=== PATIENT | female | born 1990 | race Caucasian/White ===

== ENCOUNTER 2016-10-29 04:00 | Day surgery (SDC) | payer OTHER ==
[2016-10-29] MEDS ORDERED: Ondansetron 4 MG/2 ML SDV IVPUSH ONE (04:15)
[2016-10-29] MEDS ORDERED: Sodium Chloride 0.9% 1,000 ML IV SCH (04:15)
[2016-10-29] MEDS ORDERED: Sodium Chloride 0.9% 10 ML Syringe FLUSH PRN (04:15)
[2016-10-29] MEDS ORDERED: HYDROmorphone 1 MG/ML Syringe IVPUSH ONE (04:17)
[2016-10-29] MEDS ORDERED: Ketorolac 30 MG/ML SDV IVPUSH ONE (04:17)
--- NOTE | 2016-10-29 04:27 | EDM.PDOC ---
ED HPI GENERAL MEDICAL PROBLEM - General Chief Complaint: Abdominal Pain Stated Complaint: BAD BACK PAIN Time Seen by Provider: 10/29/16 04:11 Source of Information: Reports: Patient History Limitations: Reports: No Limitations - History of Present Illness INITIAL COMMENTS - FREE TEXT/NARRATIVE: The patient presents with right flank pain. She says this has been going on for the past 4 nights. She says it happens late at night and goes away by 1 to 2 in the morning. She has nausea with it. She has no fever, chills, cough, chest pain or shortness of breath. She has no dysuria or hematuria. She has no history of renal stones. She does not have her appendix. Food does not affect the pain. She says she has no pain during the day. Onset: Gradual Duration: Day(s): (4) Location: Reports: Other (Right flank) Quality: Reports: Sharp Severity: Severe Improves with: Reports: None Worsens with: Reports: None Associated Symptoms: Reports: Nausea/Vomiting. Denies: Chest Pain, Fever/Chills , Shortness of Breath Right Upper Abdomen Pain Score (Numeric/FACES): 8 - Related Data Allergies Allergy/AdvReac Type Severity Reaction Status Date / Time methylprednisolone Allergy Itching Verified 10/29/16 04:10 Past Medical History Musculoskeletal History: Reports: Back Pain, Chronic Neurological History: Reports: Migraines - Infectious Disease History Infectious Disease History: Reports: Chicken Pox - Past Surgical History GI Surgical History: Reports: Appendectomy Social & Family History - Tobacco Use Smoking Status *Q: Never Smoker Second Hand Smoke Exposure: Yes - Caffeine Use Caffeine Use: Reports: None - Recreational Drug Use Recreational Drug Use: No ED ROS GENERAL - Review of Systems Review Of Systems: See Below Constitutional: Reports: No Symptoms HEENT: Reports: No Symptoms Respiratory: Reports: No Symptoms Cardiovascular: Reports: No Symptoms Endocrine: Reports: No Symptoms GI/Abdominal: Reports: Abdominal Pain, Nausea. Denies: Vomiting : Reports: Flank Pain (Right) Musculoskeletal: Reports: No Symptoms ED EXAM, GI/ABD - Physical Exam Exam: See Below Exam Limited By: No Limitations General Appearance: Alert, No Apparent Distress Ears: Normal External Exam Nose: Normal Inspection Head: Atraumatic, Normocephalic Neck: Normal Inspection Respiratory/Chest: No Respiratory Distress, Lungs Clear, Normal Breath Sounds Cardiovascular: Regular Rate, Rhythm, No Edema, No Murmur GI/Abdominal: Soft, Non-Tender, No Organomegaly, No Mass Back Exam: CVA Tenderness (R) Extremities: Normal Inspection Course - Vital Signs Last Recorded V/S: Last Vital Signs Temp 97.2 F 10/29/16 04:05 Pulse 97 10/29/16 04:05 Resp 16 10/29/16 04:05 BP 147/101 H 10/29/16 04:05 Pulse Ox 98 10/29/16 04:05 - Orders/Labs/Meds Orders: Active Orders 24 hr Category Date Time Status Peripheral IV Care [RC] . DIRECTED Care 10/29/16 04:16 Active Abdomen Pelvis wo Cont [CT] Stat Exams 10/29/16 04:15 Taken Sodium Chloride 0.9% [Normal Saline] 1,000 ml Med 10/29/16 04:15 Active IV ASDIRECTED Sodium Chloride 0.9% [Saline Flush] Med 10/29/16 04:15 Active 10 ml FLUSH ASDIRECTED PRN ED Antiemetic Medication Reflex [OM.PC] Stat Oth 10/29/16 04:15 Ordered Peripheral IV Insertion Adult [OM.PC] Stat Oth 10/29/16 04:15 Ordered Medication Orders Sodium Chloride (Normal Saline) 1,000 mls @ 125 mls/hr IV ASDIRECTED MARIANO Last Admin: 10/29/16 04:27 Dose: 125 mls/hr Sodium Chloride (Saline Flush) 10 ml FLUSH ASDIRECTED PRN PRN Reason: Keep Vein Open Last Admin: 10/29/16 04:25 Dose: 10 ml Labs: Laboratory Tests 10/29/16 10/29/16 10/29/16 Range/Units 04:20 04:21 04:21 WBC 10.76 H (3.98-10.04) K/mm3 RBC 4.71 (3.98-5.22) M/mm3 Hgb 13.7 (11.2-15.7) gm/L Hct 41.7 (34.1-44.9) % MCV 88.5 (79.4-94.8) fl MCH 29.1 (25.6-32.2) pg MCHC 32.9 (32.2-35.5) g/dl RDW Std Deviation 42.6 (36.4-46.3) fL Plt Count 353 (182-369) K/mm3 MPV 10.6 (9.4-12.3) fl Neut % (Auto) 57.5 (34.0-71.1) % Lymph % (Auto) 30.1 (19.3-51.7) % Saline % (Auto) 9.9 (4.7-12.5) % Eos % (Auto) 2.1 (0.7-5.8) Baso % (Auto) 0.3 (0.1-1.2) % Neut # (Auto) 6.19 H (1.56-6.13) K/mm3 Lymph # (Auto) 3.24 (1.18-3.74) K/mm3 Saline # (Auto) 1.06 H (0.24-0.36) K/mm3 Eos # (Auto) 0.23 (0.04-0.36) K/mm3 Baso # (Auto) 0.03 (0.01-0.08) K/mm3 Sodium 144 (136-145) mEq/L Potassium 3.9 (3.5-5.1) mEq/L Chloride 106 (98-107) mEq/L Carbon Dioxide 27 (21-32) mEq/L Anion Gap 14.9 (5-15) BUN 13 (7-18) mg/dL Creatinine 1.0 (0.55-1.02) mg/dL Est Cr Clr Drug Dosing 72.32 mL/min Estimated GFR (MDRD) > 60 (>60) mL/min BUN/Creatinine Ratio 13.0 L (14-18) Glucose 116 H (74-106) mg/dL Calcium 9.1 (8.5-10.1) mg/dL Total Bilirubin 0.8 (0.2-1.0) mg/dL AST 14 L (15-37) U/L ALT 24 (14-59) U/L Alkaline Phosphatase 87 (46-116) U/L Total Protein 8.0 (6.4-8.2) g/dl Albumin 3.7 (3.4-5.0) g/dl Globulin 4.3 gm/dL Albumin/Globulin Ratio 0.9 L (1-2) Lipase 125 (73-393) U/L HCG, Qual (NEGATIVE) Urine Color Yellow (Yellow) Urine Appearance Clear (Clear) Urine pH 6.0 (5.0-8.0) Ur Specific [place] > or = 1.030 (1.005-1.030) Urine Protein Negative (Negative) Urine Glucose (UA) Negative (Negative) Urine Ketones Negative (Negative) Urine Occult Blood Trace-lysed H (Negative) Urine Nitrite Negative (Negative) Urine Bilirubin Negative (Negative) Urine Urobilinogen 0.2 (0.2-1.0) Ur Leukocyte Esterase Trace H (Negative) Urine RBC 0-5 (0-5) /hpf Urine WBC 10-20 H (0-5) /hpf Ur Epithelial Cells Not Reportable Ur Squamous Epith Cells 20-30 H (0-5) /hpf Urine Bacteria Rare (FEW) /hpf Urine Mucus Not seen (FEW) /hpf 10/29/16 Range/Units 04:21 WBC (3.98-10.04) K/mm3 RBC (3.98-5.22) M/mm3 Hgb (11.2-15.7) gm/L Hct (34.1-44.9) % MCV (79.4-94.8) fl MCH (25.6-32.2) pg MCHC (32.2-35.5) g/dl RDW Std Deviation (36.4-46.3) fL Plt Count (182-369) K/mm3 MPV (9.4-12.3) fl Neut % (Auto) (34.0-71.1) % Lymph % (Auto) (19.3-51.7) % Saline % (Auto) (4.7-12.5) % Eos % (Auto) (0.7-5.8) Baso % (Auto) (0.1-1.2) % Neut # (Auto) (1.56-6.13) K/mm3 Lymph # (Auto) (1.18-3.74) K/mm3 Saline # (Auto) (0.24-0.36) K/mm3 Eos # (Auto) (0.04-0.36) K/mm3 Baso # (Auto) (0.01-0.08) K/mm3 Sodium (136-145) mEq/L Potassium (3.5-5.1) mEq/L Chloride (98-107) mEq/L Carbon Dioxide (21-32) mEq/L Anion Gap (5-15) BUN (7-18) mg/dL Creatinine (0.55-1.02) mg/dL Est Cr Clr Drug Dosing mL/min Estimated GFR (MDRD) (>60) mL/min BUN/Creatinine Ratio (14-18) Glucose (74-106) mg/dL Calcium (8.5-10.1) mg/dL Total Bilirubin (0.2-1.0) mg/dL AST (15-37) U/L ALT (14-59) U/L Alkaline Phosphatase (46-116) U/L Total Protein (6.4-8.2) g/dl Albumin (3.4-5.0) g/dl Globulin gm/dL Albumin/Globulin Ratio (1-2) Lipase (73-393) U/L HCG, Qual Negative (NEGATIVE) Urine Color (Yellow) Urine Appearance (Clear) Urine pH (5.0-8.0) Ur Specific [place] (1.005-1.030) Urine Protein (Negative) Urine Glucose (UA) (Negative) Urine Ketones (Negative) Urine Occult Blood (Negative) Urine Nitrite (Negative) Urine Bilirubin (Negative) Urine Urobilinogen (0.2-1.0) Ur Leukocyte Esterase (Negative) Urine RBC (0-5) /hpf Urine WBC (0-5) /hpf Ur Epithelial Cells Ur Squamous Epith Cells (0-5) /hpf Urine Bacteria (FEW) /hpf Urine Mucus (FEW) /hpf Meds: Medications Generic Name Dose Route Start Last Admin Trade Name Freq PRN Reason Stop Dose Admin Sodium Chloride 1,000 mls @ 125 mls/hr 10/29/16 04:15 10/29/16 04:27 Normal Saline IV 125 mls/hr ASDIRECTED MARIANO Administration Sodium Chloride 10 ml 10/29/16 04:15 10/29/16 04:25 Saline Flush FLUSH 10 ml ASDIRECTED PRN Administration Keep Vein Open Discontinued Medications Generic Name Dose Route Start Last Admin Trade Name Freq PRN Reason Stop Dose Admin Hydromorphone HCl 1 mg 10/29/16 04:17 10/29/16 04:30 Dilaudid IVPUSH 10/29/16 04:18 1 mg ONETIME ONE Administration Ketorolac Tromethamine 30 mg 10/29/16 04:17 10/29/16 04:33 Toradol IVPUSH 10/29/16 04:18 30 mg ONETIME ONE Administration Ondansetron HCl 4 mg 10/29/16 04:15 10/29/16 04:28 Zofran IVPUSH 10/29/16 04:16 4 mg ONETIME ONE Administration - Re-Assessments/Exams Free Text/Narrative Re-Assessment/Exam: 10/29/16 04:33 I ordered an IV NS at 125mL/hr, zofran 4mg IV, dilaudid 1mg IV, toradol 30mg IV , labs, UA and CT of her abdomen and pelvis to look for a kidney stone. 10/29/16 06:33 Her WBC was elevated at 10.76. Her HCG was negative. Her CMP looks good. Her UA shows no UTI. It appears to be a contaminated sample. There is epithelial cells in it. The CT shows bilateral nephrochalcinosis and cholelithiasis with a large gallstone potentially impacted at the neck of the gallbladder. Her pain is coming back. I am thinking she will need her gallbladder out. I called Dr Lopez and he wanted an US and he will come see her around 8 and take her to surgery later. Departure - Departure Time of Disposition: 06:45 Disposition: Refer to Observation Condition: fair Clinical Impression: Biliary colic Cholelithiasis Qualifiers: Cholelithiasis location: gallbladder Cholecystitis presence: without cholecystitis Biliary obstruction: without biliary obstruction Qualified Code(s) : K80.20 - Calculus of gallbladder without cholecystitis without obstruction - Discharge Information Forms: ED Department Discharge - My Orders Last 24 Hours: My Active Orders 10/29/16 04:15 Abdomen Pelvis wo Cont [CT] Stat Sodium Chloride 0.9% [Normal Saline] 1,000 ml IV ASDIRECTED Sodium Chloride 0.9% [Saline Flush] 10 ml FLUSH ASDIRECTED PRN ED Antiemetic Medication Reflex [OM.PC] Stat Peripheral IV Insertion Adult [OM.PC] Stat 10/29/16 04:16 Peripheral IV Care [RC] . DIRECTED - Assessment/Plan Last 24 Hours: My Active Orders 10/29/16 04:15 Abdomen Pelvis wo Cont [CT] Stat Sodium Chloride 0.9% [Normal Saline] 1,000 ml IV ASDIRECTED Sodium Chloride 0.9% [Saline Flush] 10 ml FLUSH ASDIRECTED PRN ED Antiemetic Medication Reflex [OM.PC] Stat Peripheral IV Insertion Adult [OM.PC] Stat 10/29/16 04:16 Peripheral IV Care [RC] . DIRECTED
[2016-10-29] MEDS ORDERED: HYDROmorphone 0.5 MG/0.5 ML Syringe IVPUSH ONE (06:49)
--- NOTE | 2016-10-29 08:01 | US ---
Limited abdominal ultrasound: Multiple real-time images were obtained of the upper right abdomen. Pancreas appears within normal limits. Liver shows no focal abnormality. Large gallstone is noted within the gallbladder neck measuring 1.7 cm. Smaller gallstones seen on prior CT exam are hidden by the larger gallstone on this exam and not seen. No biliary duct dilatation is seen. No gallbladder wall thickening is identified. Right kidney shows no hydronephrosis. No discrete shadowing calcification is seen within the right kidney. Right kidney measures 9.9 cm in length. Impression: 1. 1.7 cm gallstone within the gallbladder neck. Smaller gallstones seen on prior CT are not seen and likely hidden by the larger gallstone on this exam. 2. No additional abnormality is seen on right upper quadrant abdominal ultrasound. Diagnostic code #3
--- NOTE | 2016-10-29 08:10 | PCM.PREANE ---
Preanesthetic Assessment - Procedure Proposed Procedure: Laparoscopic Cholecystectomy - Anesthesia/Transfusion/Family Hx Anesthesia History: Prior Anesthesia Without Reaction Family History of Anesthesia Reaction: No Transfusion History: No Prior Transfusion(s) Type of Transfusion Reactions: Reports: Unknown Intubation History: Unknown - Review of Systems General: No Symptoms Pulmonary: No Symptoms Cardiovascular: No Symptoms Gastrointestinal: Abdominal pain, Diarrhea, Vomiting, Other (occasional GERD) Neurological: Headache (frequent, occasional migraine) Other: Reports: None - Physical Assessment NPO Status Date: 10/29/16 NPO Status Time: 21:00 O2 Sat by Pulse Oximetry: 98 Respiratory Rate: 16 Vital Signs: Last Vital Signs Temp 36.2 C 10/29/16 04:05 Pulse 97 10/29/16 04:05 Resp 16 10/29/16 04:05 BP 147/101 H 10/29/16 04:05 Pulse Ox 98 10/29/16 04:05 Height: 1.63 m Weight: 106.594 kg ASA Class: 2E Mental Status: Alert & Oriented x3 Airway Class: Mallampati = 1 Dentition: Reports: Broken Tooth/Teeth (front top right tooth chipped medially) Thyro-Mental Finger Breadths: 3 Mouth Opening Finger Breadths: 3 ROM/Head Extension: Full Lungs: Clear to auscultation, Normal respiratory effort Cardiovascular: Regular Rate, Regular Rhythm - Lab Values: Laboratory Last Values WBC 10.76 K/mm3 (3.98-10.04) H 10/29/16 04:21 RBC 4.71 M/mm3 (3.98-5.22) 10/29/16 04:21 Hgb 13.7 gm/L (11.2-15.7) 10/29/16 04:21 Hct 41.7 % (34.1-44.9) 10/29/16 04:21 MCV 88.5 fl (79.4-94.8) 10/29/16 04:21 MCH 29.1 pg (25.6-32.2) 10/29/16 04:21 MCHC 32.9 g/dl (32.2-35.5) 10/29/16 04:21 RDW Std Deviation 42.6 fL (36.4-46.3) 10/29/16 04:21 Plt Count 353 K/mm3 (182-369) 10/29/16 04:21 MPV 10.6 fl (9.4-12.3) 10/29/16 04:21 Neut % (Auto) 57.5 % (34.0-71.1) 10/29/16 04:21 Lymph % (Auto) 30.1 % (19.3-51.7) 10/29/16 04:21 [place] % (Auto) 9.9 % (4.7-12.5) 10/29/16 04:21 Eos % (Auto) 2.1 (0.7-5.8) 10/29/16 04:21 Baso % (Auto) 0.3 % (0.1-1.2) 10/29/16 04:21 Neut # (Auto) 6.19 K/mm3 (1.56-6.13) H 10/29/16 04:21 Lymph # (Auto) 3.24 K/mm3 (1.18-3.74) 10/29/16 04:21 [place] # (Auto) 1.06 K/mm3 (0.24-0.36) H 10/29/16 04:21 Eos # (Auto) 0.23 K/mm3 (0.04-0.36) 10/29/16 04:21 Baso # (Auto) 0.03 K/mm3 (0.01-0.08) 10/29/16 04:21 Sodium 144 mEq/L (136-145) 10/29/16 04:21 Potassium 3.9 mEq/L (3.5-5.1) 10/29/16 04:21 Chloride 106 mEq/L (98-107) 10/29/16 04:21 Carbon Dioxide 27 mEq/L (21-32) 10/29/16 04:21 Anion Gap 14.9 (5-15) 10/29/16 04:21 BUN 13 mg/dL (7-18) 10/29/16 04:21 Creatinine 1.0 mg/dL (0.55-1.02) 10/29/16 04:21 Est Cr Clr Drug Dosing 72.32 mL/min 10/29/16 04:21 Estimated GFR (MDRD) > 60 mL/min (>60) 10/29/16 04:21 BUN/Creatinine Ratio 13.0 (14-18) L 10/29/16 04:21 Glucose 116 mg/dL (74-106) H 10/29/16 04:21 Calcium 9.1 mg/dL (8.5-10.1) 10/29/16 04:21 Total Bilirubin 0.8 mg/dL (0.2-1.0) 10/29/16 04:21 AST 14 U/L (15-37) L 10/29/16 04:21 ALT 24 U/L (14-59) 10/29/16 04:21 Alkaline Phosphatase 87 U/L (46-116) 10/29/16 04:21 Total Protein 8.0 g/dl (6.4-8.2) 10/29/16 04:21 Albumin 3.7 g/dl (3.4-5.0) 10/29/16 04:21 Globulin 4.3 gm/dL 10/29/16 04:21 Albumin/Globulin Ratio 0.9 (1-2) L 10/29/16 04:21 Lipase 125 U/L (73-393) 10/29/16 04:21 HCG, Qual Negative (NEGATIVE) 10/29/16 04:21 Urine Color Yellow (Yellow) 10/29/16 04:20 Urine Appearance Clear (Clear) 10/29/16 04:20 Urine pH 6.0 (5.0-8.0) 10/29/16 04:20 Ur Specific [place] > or = 1.030 (1.005-1.030) 10/29/16 04:20 Urine Protein Negative (Negative) 10/29/16 04:20 Urine Glucose (UA) Negative (Negative) 10/29/16 04:20 Urine Ketones Negative (Negative) 10/29/16 04:20 Urine Occult Blood Trace-lysed (Negative) H 10/29/16 04:20 Urine Nitrite Negative (Negative) 10/29/16 04:20 Urine Bilirubin Negative (Negative) 10/29/16 04:20 Urine Urobilinogen 0.2 (0.2-1.0) 10/29/16 04:20 Ur Leukocyte Esterase Trace (Negative) H 10/29/16 04:20 Urine RBC 0-5 /hpf (0-5) 10/29/16 04:20 Urine WBC 10-20 /hpf (0-5) H 10/29/16 04:20 Ur Epithelial Cells Not Reportable 10/29/16 04:20 Ur Squamous Epith Cells 20-30 /hpf (0-5) H 10/29/16 04:20 Urine Bacteria Rare /hpf (FEW) 10/29/16 04:20 Urine Mucus Not seen /hpf (FEW) 10/29/16 04:20 - Allergies Allergies/Adverse Reactions: Allergies Allergy/AdvReac Type Severity Reaction Status Date / Time methylprednisolone Allergy Itching Verified 10/29/16 04:10 - Blood Blood Available: No Product(s) Available: None - Anesthesia Plan Pre-Op Medication Ordered: None - Acknowledgements Anesthesia Type Planned: General Anesthesia (pt ok with receiving decadron, states "she would rather itch than be vomiting") Pt an Appropriate Candidate for the Planned Anesthesia: Yes Alternatives and Risks of Anesthesia Discussed w Pt/Guardian: Yes Pt/Guardian Understands and Agrees with Anesthesia Plan: Yes PreAnesthesia Questionnaire Musculoskeletal History: Reports: Back Pain, Chronic Neurological History: Reports: Migraines - Infectious Disease History Infectious Disease History: Reports: Chicken Pox - Past Surgical History GI Surgical History: Reports: Appendectomy - SUBSTANCE USE Smoking Status *Q: Never Smoker Second Hand Smoke Exposure: Yes Recreational Drug Use History: No - CURRENT (IN HOUSE) MEDS Current Meds: Current Medications Sodium Chloride (Normal Saline) 1,000 mls @ 125 mls/hr IV ASDIRECTED MARIANO Last Admin: 10/29/16 04:27 Dose: 125 mls/hr Sodium Chloride (Saline Flush) 10 ml FLUSH ASDIRECTED PRN PRN Reason: Keep Vein Open Last Admin: 10/29/16 04:25 Dose: 10 ml Discontinued Medications Hydromorphone HCl (Dilaudid) 1 mg IVPUSH ONETIME ONE Stop: 10/29/16 04:18 Last Admin: 10/29/16 04:30 Dose: 1 mg Hydromorphone HCl (Dilaudid) 0.5 mg IVPUSH ONETIME ONE Stop: 10/29/16 06:50 Last Admin: 10/29/16 06:53 Dose: 0.5 mg Ketorolac Tromethamine (Toradol) 30 mg IVPUSH ONETIME ONE Stop: 10/29/16 04:18 Last Admin: 10/29/16 04:33 Dose: 30 mg Ondansetron HCl (Zofran) 4 mg IVPUSH ONETIME ONE Stop: 10/29/16 04:16 Last Admin: 10/29/16 04:28 Dose: 4 mg
[2016-10-29] MEDS ORDERED: Sodium Chloride 0.9% 50 ML SDV ONE ×2 (08:30→10:20)
[2016-10-29] MEDS ORDERED: Bupivacaine 0.5% 30 ML SDV ONE (08:31)
[2016-10-29] MEDS ORDERED: Iopamidol 612 MG/ML 50 ML SDV ONE (08:31)
[2016-10-29] MEDS ORDERED: Rocuronium 50 MG/5 ML Vial ONE (08:32)
[2016-10-29] MEDS ORDERED: Ondansetron 4 MG/2 ML SDV ONE (08:32)
[2016-10-29] MEDS ORDERED: Lidocaine 1% 4 ML ONE (08:32)
[2016-10-29] MEDS ORDERED: Propofol 200 MG/20 ML SDV ONE (08:32)
[2016-10-29] MEDS ORDERED: Midazolam 1 MG/ML 2 ML SDV ONE (08:33)
[2016-10-29] MEDS ORDERED: fentaNYL 250 MCG/5 ML SDV ONE (08:33)
[2016-10-29] MEDS ORDERED: Scopolamine 1.5 MG Transdermal Patch TRDERM ONE (08:36)
[2016-10-29] MEDS ORDERED: Dexamethasone 4 MG/ML 5 ML MDV ONE (08:39)
[2016-10-29] MEDS ORDERED: Ampicillin/Sulbactam Na 3 GM in Sodium Chloride 0.9% 100 ML IV ONE (08:45)
--- NOTE | 2016-10-29 09:37 | CT ---
CT abdomen and pelvis Technique: Multiple axial sections were obtained from above the kidneys inferiorly through the pubic symphysis. Intravenous and oral contrast was not utilized. Study has been performed as a ureteral stone protocol. Comparison: No previous abdominal imaging. Findings: Visualized lung bases show mild atelectasis. Noncontrast appearance of the liver and spleen are within normal limits. Calcified gallstones are seen within the gallbladder. Large gallstones seen within the gallbladder neck measuring approximately 1.7 cm. Smaller calcification is seen within the dependent portion of the gallbladder. Adrenal glands show no nodule. Pancreas is within normal limits. Aorta shows no aneurysmal dilatation. No retroperitoneal adenopathy or mesenteric abnormalities are seen. Surgical clips are noted next to the cecum presumably due to previous appendectomy. No pelvic mass or adenopathy is seen. No free fluid or inflammatory change is seen. Kidneys show no abnormal calcifications. No ureteral dilatation is seen. No ureteral calculus is seen. Bone window settings were reviewed which appear within normal limits for the patient's age. Impression: 1. Gallstones which appear calcified. 2. No renal calculi are seen. No ureteral dilatation or ureteral stone is seen. 3. No additional abnormality is identified on noncontrast CT study performed as a ureteral stone protocol. Diagnostic code #2 I agree with preliminary report issued by [facility] ([facility] preliminary report dictated on 10/29/16, 7:14 AM Central Time)
[2016-10-29] MEDS ORDERED: Labetalol 100 MG/20 ML MDV ONE (10:08)
--- NOTE | 2016-10-29 10:41 | HP ---
DATE OF ADMISSION: 10/29/2016 HISTORY OF PRESENT ILLNESS: This is a 26-year-old female who came into the emergency room last night with flank pain on both sides. She was worked up. CT scan showing normal kidneys, but gallstones, which was confirmed by ultrasound showing a stone about 1 cm, impacted in the neck. The patient states she has been having this pain since . Every evening she would have it along with severe pain radiating to both flanks, right greater than the left. Associated with nausea and vomiting and that would occur at night. Last night, it seemed to be much worse, and she came into the emergency room. She has settled down. The patient states that she is better now. FAMILY HISTORY: Her family history is that her mother has gallstones and needs surgery. PAST MEDICAL HISTORY: Medical problems are none. PAST SURGICAL HISTORY: Lap appendectomy. ALLERGIES: To methylprednisolone. SOCIAL HISTORY: No smoking and no drinking. REVIEW OF SYSTEMS: No chest pain, shortness of breath, cough, hoarseness, wheezing, fainting, weakness, numbness, or convulsions. PHYSICAL EXAMINATION: GENERAL: Reveals an alert and cooperative female. VITAL SIGNS: She has blood pressure of 147/101, respirations 16, pulse 97, temperature 97.2. EYES: Sclerae white. Extraocular muscle motion normal. ORAL CAVITY: Healthy mucous membrane with mouth and tongue. NECK: Supple. No nodes. No thyromegaly. Trachea midline. LUNGS: Clear. No rales, rhonchi, fremitus, or dullness. HEART: Tones regular rate. No S3, S4, jugular venous distention. ABDOMEN: Soft. No tenderness, guarding, or rebound. MUSCULOSKELETAL: No back tenderness. Upper and lower extremities, no angulation deformities. SKIN: Warm and dry. PSYCH: She is alert, cooperative, and oriented x3. NEUROLOGIC: Cranial nerves 3 through 12 intact. No sensorineural deficit. LABORATORY DATA: Hemoglobin 13.7, platelet count is normal, white count is 10,000.7. Sodium and electrolytes normal. Her bilirubin is normal at 0.8. Liver enzymes normal. Urinalysis is negative. ASSESSMENT: Impacted stone in the cystic duct with recurrent abdominal pain. PLAN: For laparoscopic cholecystectomy. I discussed this with the patient, the risks, and the complications. She understands and consents. We will schedule today. MMODAL /[id number]
[2016-10-29] MEDS ORDERED: Lactated Ringers 1,000 ML ONE (10:45)
--- NOTE | 2016-10-29 11:24 | PCM.OPNOTE ---
- General Post-Op/Procedure Note Date of Surgery/Procedure: 10/29/16 Operative Procedure(s): lap haseeb with IOC Pre Op Diagnosis: cholelithisasis / cholecystitis Post-Op Diagnosis: Same Anesthesia Technique: General ET tube Primary Surgeon: Kota Lopez EBL in mLs: 10 Complications: None Condition: Good
[2016-10-29] MEDS ORDERED: diphenhydrAMINE 50 MG/ML SDV IVPUSH PRN (11:26)
--- NOTE | 2016-10-29 11:29 | PCM.POSTAN ---
POST ANESTHESIA ASSESSMENT - MENTAL STATUS Mental Status: alert, oriented - VITAL SIGNS Pulse Rate: 85 SaO2: 91 Resp Rate: 21 Blood Pressure: 133/79 Temperature: 37.2 C - RESPIRATORY Respiratory Status: respiratory rate WNL, airway patent, O2 saturation stable - CARDIOVASCULAR CV Status: pulse rate WNL, blood pressure stable - GASTROINTESTINAL GI Status: no symptoms - PAIN Pain Score: 0 - POST OP HYDRATION Hydration Status: adequate & stable (no anesthesia complications noted)
[2016-10-29] MEDS: fentaNYL 100 MCG/2 ML SDV IVPUSH PRN ×3 (11:34→12:05)
--- NOTE | 2016-10-29 12:07 | CR ---
Operative cholangiogram: Multiple fluoroscopic spot views utilizing C-arm device was obtained during operative cholangiogram study. Opacification CHD and CBD are noted. Some intrahepatic opacification is also seen within the biliary tree. No filling defects are seen to indicate retained stone. Contrast noted within the duodenum. Impression: 1. No abnormality identified on operative cholangiogram exam. Diagnostic code #1
[2016-10-29] MEDS ORDERED: Acetaminophen/HYDROcodone 325-5 MG Tab PO ONE (13:50)
--- NOTE | 2016-10-29 13:51 | OR ---
DATE OF OPERATION: 10/29/2016 SURGEON: Kota Lopez MD PREOPERATIVE DIAGNOSIS: Cholelithiasis, cholecystitis. POSTOPERATIVE DIAGNOSIS: Cholelithiasis, cholecystitis. OPERATION PERFORMED: Laparoscopic cholecystectomy and intraoperative cholangiogram. FINDINGS: Inflamed gallbladder with a stone impacted in the cystic duct. Cholangiogram showed right and left hepatic duct with free flow of dye into the duodenum without any dilatation. ANESTHESIA: Procedure done under general anesthetic. ESTIMATED BLOOD LOSS: About 10 mL. DESCRIPTION OF PROCEDURE: The patient was taken to the operating room, placed in a supine position, connected to monitoring equipment, given a general anesthetic, intubated, antibiotics given, and SCDs were placed. The abdomen was prepped with DuraPrep and draped off in a sterile fashion. Incision was made just above the umbilicus. Using a 5-mm Optiport, abdominal cavity was entered. A 5-mm 0- degree camera was inserted and abdominal cavity scanned showing a distended gallbladder, right upper quadrant. A 10-mm trocar was placed in the epigastric port and a 5-mm trocar placed in right upper and right lateral ports. The patient was placed in reverse Trendelenburg with leftward tilt. The fundus of the gallbladder was retracted, and the adhesions were taken off the lower part of the gallbladder. Inflamed stone was identified and impacted in the cystic duct covered by the duodenum. Duodenum was carefully removed by blunt dissection and using electrocautery, dissection was carried down through the cystic duct-Arielel pouch junction, which was developed. After clearing the cystic duct and dissecting down to where it began to widen out, then cystic duct- Arielle pouch junction was secured with a clip. The cystic duct was opened and cholangiocatheter was then inserted and secured with a clip, and a cholangiogram was obtained using contrast diluted with equal parts of saline. This showed the above intraoperative cholangiogram. The cholangiocatheter was then removed. A clip was placed on the cystic duct and 0 PDS endo-loop was then placed over this to secure it. The gallbladder was then dissected from its attachments. The liver was placed in an Endobag and removed from the epigastric port by enlarging the epigastric port. With this accomplished, the gallbladder was then sent to pathology. The 10-mm trocar was then replaced and pneumoperitoneum established. The area was irrigated and excellent hemostasis secured. This completed the intraabdominal portion of the procedure, the pneumoperitoneum, and ports were removed. 0 Vicryl suture was used to close the fascia in the epigastric port, and the skin of each port closed with subdermal 4-0 Dexon suture in interrupted fashion. Steri-Strips and sterile dressing placed, and 0.5% Marcaine infiltrated in the skin. The patient tolerated the procedure and was sent to recovery room in a stable condition. CODI /[id number]
[2016-10-29 14:43] VITALS: BP 112/51
== END 2016-10-29 14:20 | disposition home or self-care (01) ==
LOC: JD.ED 04:00 → JD.SDS 08:22
PROVIDERS: ATTEND Surgery
PROC: 0FT44ZZ Resection of Gallbladder, Percutaneous Endoscopic Approach (ICD-10-PCS; principal; 2016-10-29)
PROC: BF12YZZ Fluoroscopy of Gallbladder using Other Contrast (ICD-10-PCS; 2016-10-29)
DX: K80.10 Calculus of gallbladder with chronic cholecystitis without obstruction (principal); Z88.8 Allergy status to other drugs, medicaments and biological substances; Z90.49 Acquired absence of other specified parts of digestive tract
CPT/HCPCS: 36415; 47563; 74176; 74300; 76705; 80053; 81001; 83690; 84703; 85025; 88304; 96361; 96365; 96375; 96376; 99285; A9270; J0295; J1100; J1170; J1200; J1885; J2250; J2405; J3010; J7030; J7040; J7050; J7120; Q9967; 00790; 99284; J2704

== ENCOUNTER 2017-06-10 19:07 | Emergency (ER) | payer OTHER ==
[2017-06-10 19:17] VITALS: BP 129/100
--- NOTE | 2017-06-10 21:08 | US ---
First trimester obstetrical ultrasound: Multiple real-time images were obtained transvaginally. Comparison: No previous ultrasound for current . Dates: LMP: LMP given as 04/20/17, KAL 01/25/18, gestational age 7 weeks 2 days Current ultrasound: KAL 01/30/18, gestational age 6 weeks 4 days Single intrauterine gestation is seen. Amniotic fluid volume is normal. pole and yolk sac are identified. Multiple cysts seen within the left ovary. The 2 larger cysts each measure 3.8 cm. Smaller cyst measuring 2.0 cm seen within the right ovary. Small amount of free fluid is seen within the cul-de-sac. Measurements: Gestational sac: 1.65 cm - 6 weeks 2 days Loop-rump length: 0.69 cm - 6 weeks 4 days Heart rate: 129 BPM Impression: 1. Single intrauterine gestation. Dates as noted above. 2. Multiple cysts within the left ovary with 2 largest cyst measuring 3.8 cm. Small cyst within the right ovary which is felt to be physiologic. 3. No other complicating process is seen by ultrasound exam. Diagnostic code #2
--- NOTE | 2017-06-10 21:20 | EDM.PDOC ---
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 She did develop some slight spotting with wiping there is minimal in nature. She is concerned that she is having some complications with her . She was was on bed rest with her prior 2 pregnancies. Currently in the muscle discomfort to her abdomen and back is general. Worse with movements. Denies any fever, short of breath, chest pain, dysuria, abnormal vaginal discharge, recent sexual intercourse, diarrhea, poor appetite, or any additional complaints. She is most hours of the day mildly nauseated which is consistent with previous pregnancies with morning sickness. history includes 3 para 2. She has no additional past medical history is only taking vitamins. She has no history of ectopic , ovarian cyst, or endometriosis. Patient has not been seen by an PRINTING MACHINE MECHANIC specialist. Patient found out she was with home test came back positive. She is concerned she may be having a miscarriage at this time. 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: Musculoskeletal History: Reports: Back Pain, Chronic Neurological History: Reports: Migraines - Infectious Disease History Infectious Disease History: Reports: Chicken Pox - Past Surgical History GI Surgical History: Reports: Appendectomy, Cholecystectomy Social & Family History - Tobacco Use Smoking Status *Q: Never Smoker Second Hand Smoke Exposure: No - Caffeine Use Caffeine Use: Reports: Coffee - Recreational Drug Use Recreational Drug Use: No ED ROS GENERAL - Review of Systems Review Of Systems: See Below Constitutional: Reports: No Symptoms Respiratory: Reports: No Symptoms Cardiovascular: Reports: No Symptoms GI/Abdominal: Reports: Abdominal Pain (generalized, per patient muscle related) . Denies: Constipation, Nausea, Vomiting : Reports: No Symptoms Musculoskeletal: Reports: No Symptoms Neurological: Reports: No Symptoms ED EXAM - Physical Exam Exam: See Below Exam Limited By: No Limitations General Appearance: Alert, WD/WN, No Apparent Distress Ears: Hearing Grossly Normal Nose: Normal Inspection Throat/Mouth: Normal Voice, No Airway Compromise Neck: Normal Inspection, Supple Respiratory/Chest: No Respiratory Distress, Lungs Clear, Normal Breath Sounds, No Accessory Muscle Use Cardiovascular: Normal Peripheral Pulses, Regular Rate, Rhythm GI/Abdominal Exam: Normal Bowel Sounds, Soft, No Organomegaly, No Distention, Tender (mild generalized tenderness. patient states muscle soreness. no adnexal tenderness. no mcburneys point. no clemons sign. ) Rectal Exam: Deferred (Female) Exam: Other (deferred per patient. ) Back Exam: Normal Inspection. No: CVA Tenderness (L), CVA Tenderness (R) Extremities: Normal Inspection, Non-Tender, No Pedal Edema, Odalys's Sign Neurological: Alert, Oriented, CN II-XII Intact, Normal Cognition, No Motor/ Sensory Deficits Psychiatric: Normal Affect, Normal Mood Skin Exam: Warm, Dry, Intact, Normal Color Course - Vital Signs Last Recorded V/S: Last Vital Signs Temp 97.9 F 06/10/17 19:15 Pulse 111 H 06/10/17 19:15 Resp 18 06/10/17 19:15 BP 129/100 H 06/10/17 19:15 Pulse Ox 100 06/10/17 19:15 - Orders/Labs/Meds Labs: Laboratory Tests 06/10/17 06/10/17 06/10/17 Range/Units 20:00 20:10 20:10 WBC 15.02 H (3.98-10.04) K/mm3 RBC 4.51 (3.98-5.22) M/mm3 Hgb 13.1 (11.2-15.7) gm/L Hct 38.8 (34.1-44.9) % MCV 86.0 (79.4-94.8) fl MCH 29.0 (25.6-32.2) pg MCHC 33.8 (32.2-35.5) g/dl RDW Std Deviation 41.8 (36.4-46.3) fL Plt Count 367 (182-369) K/mm3 MPV 10.2 (9.4-12.3) fl Neut % (Auto) 68.0 (34.0-71.1) % Lymph % (Auto) 21.9 (19.3-51.7) % [place] % (Auto) 8.9 (4.7-12.5) % Eos % (Auto) 0.7 (0.7-5.8) Baso % (Auto) 0.2 (0.1-1.2) % Neut # (Auto) 10.23 H (1.56-6.13) K/mm3 Lymph # (Auto) 3.29 (1.18-3.74) K/mm3 [place] # (Auto) 1.33 H (0.24-0.36) K/mm3 Eos # (Auto) 0.10 (0.04-0.36) K/mm3 Baso # (Auto) 0.03 (0.01-0.08) K/mm3 Sodium 140 (136-145) mEq/L Potassium 3.8 (3.5-5.1) mEq/L Chloride 104 (98-107) mEq/L Carbon Dioxide 24 (21-32) mEq/L Anion Gap 15.8 H (5-15) BUN 10 (7-18) mg/dL Creatinine 0.9 (0.55-1.02) mg/dL Est Cr Clr Drug Dosing 79.64 mL/min Estimated GFR (MDRD) > 60 (>60) mL/min BUN/Creatinine Ratio 11.1 L (14-18) Glucose 101 (74-106) mg/dL Calcium 9.2 (8.5-10.1) mg/dL Total Bilirubin 1.1 H (0.2-1.0) mg/dL AST 15 (15-37) U/L ALT 24 (14-59) U/L Alkaline Phosphatase 76 (46-116) U/L Total Protein 7.3 (6.4-8.2) g/dl Albumin 3.4 (3.4-5.0) g/dl Globulin 3.9 gm/dL Albumin/Globulin Ratio 0.9 L (1-2) HCG, Quant mIU/mL Urine Color Yellow (Yellow) Urine Appearance Clear (Clear) Urine pH 6.0 (5.0-8.0) Ur Specific [place] 1.025 (1.005-1.030) Urine Protein Negative (Negative) Urine Glucose (UA) Negative (Negative) Urine Ketones Negative (Negative) Urine Occult Blood Negative (Negative) Urine Nitrite Negative (Negative) Urine Bilirubin Negative (Negative) Urine Urobilinogen 0.2 (0.2-1.0) Ur Leukocyte Esterase Negative (Negative) Urine RBC 0-5 (0-5) /hpf Urine WBC 0-5 (0-5) /hpf Ur Epithelial Cells 5-10 H (0-5) /hpf Urine Bacteria Moderate H (FEW) /hpf Urine Mucus Few (FEW) /hpf Blood Type 06/10/17 06/10/17 Range/Units 20:10 20:10 WBC (3.98-10.04) K/mm3 RBC (3.98-5.22) M/mm3 Hgb (11.2-15.7) gm/L Hct (34.1-44.9) % MCV (79.4-94.8) fl MCH (25.6-32.2) pg MCHC (32.2-35.5) g/dl RDW Std Deviation (36.4-46.3) fL Plt Count (182-369) K/mm3 MPV (9.4-12.3) fl Neut % (Auto) (34.0-71.1) % Lymph % (Auto) (19.3-51.7) % [place] % (Auto) (4.7-12.5) % Eos % (Auto) (0.7-5.8) Baso % (Auto) (0.1-1.2) % Neut # (Auto) (1.56-6.13) K/mm3 Lymph # (Auto) (1.18-3.74) K/mm3 [place] # (Auto) (0.24-0.36) K/mm3 Eos # (Auto) (0.04-0.36) K/mm3 Baso # (Auto) (0.01-0.08) K/mm3 Sodium (136-145) mEq/L Potassium (3.5-5.1) mEq/L Chloride (98-107) mEq/L Carbon Dioxide (21-32) mEq/L Anion Gap (5-15) BUN (7-18) mg/dL Creatinine (0.55-1.02) mg/dL Est Cr Clr Drug Dosing mL/min Estimated GFR (MDRD) (>60) mL/min BUN/Creatinine Ratio (14-18) Glucose (74-106) mg/dL Calcium (8.5-10.1) mg/dL Total Bilirubin (0.2-1.0) mg/dL AST (15-37) U/L ALT (14-59) U/L Alkaline Phosphatase (46-116) U/L Total Protein (6.4-8.2) g/dl Albumin (3.4-5.0) g/dl Globulin gm/dL Albumin/Globulin Ratio (1-2) HCG, Quant 62177.0 mIU/mL Urine Color (Yellow) Urine Appearance (Clear) Urine pH (5.0-8.0) Ur Specific [place] (1.005-1.030) Urine Protein (Negative) Urine Glucose (UA) (Negative) Urine Ketones (Negative) Urine Occult Blood (Negative) Urine Nitrite (Negative) Urine Bilirubin (Negative) Urine Urobilinogen (0.2-1.0) Ur Leukocyte Esterase (Negative) Urine RBC (0-5) /hpf Urine WBC (0-5) /hpf Ur Epithelial Cells (0-5) /hpf Urine Bacteria (FEW) /hpf Urine Mucus (FEW) /hpf Blood Type A POSITIVE - Re-Assessments/Exams Free Text/Narrative Re-Assessment/Exam: Labs reviewed: White blood cell count 15.02, hemoglobin 13.1, platelet count 367 , neutrophil percentage is normal, neutrophil number is 10.23, chemistry panel essentially normal. Quantitative hCG 28,040. UA negative for infection or blood. Ultrasound impression: Single intrauterine gestation. Estimated delivery date January 30, 2018. Gestational age 6 weeks 4 days. Multiple cysts within the left ovary with 2 largest cyst measuring 3.8 cm. Small cyst within the right ovary which is felt to be physiologic. No other complicated processes seen by ultrasound exam. Patient continues to have minimal vaginal bleeding. Pain is under control. Will discharge patient home with instructions as documented. 0 Departure - Departure Time of Disposition: 21:16 Disposition: Home, Self-Care 01 Condition: Good Clinical Impression: Vaginal bleeding in - Discharge Information Instructions: Vaginal Bleeding During , First Trimester Referrals: Epifanio Fonseca MD [Primary Care Provider] - Forms: ED Department Discharge, ED Return to Work/School Form Additional Instructions: Ultrasound impression Single intrauterine gestation. Estimated delivery date January 30, 2018. Gestational age 6 weeks 4 days. Multiple cysts within the left ovary with 2 largest cyst measuring 3.8 cm. Small cyst within the right ovary which is felt to be physiologic. No other complicated processes seen by ultrasound exam. Unclear etiology of vaginal bleeding although fairly normal during the first trimester of . Most commonly with implantation. This will need to be monitored closely. Suggest following up with Dr. Fonseca if persist over the next week. If worsens please return to the E.D. for reexamination. Utilize tylenol for any pain. Return to the E.D. for any new or worsening symptoms.
== END 2017-06-10 21:39 | disposition home or self-care (01) ==
LOC: JD.ED 19:07
DX: O20.9 Hemorrhage in early pregnancy, unspecified (principal); Z88.8 Allergy status to other drugs, medicaments and biological substances; Z3A.01 Less than 8 weeks gestation of pregnancy
CPT/HCPCS: 36415; 76817; 76817-26; 80053; 81001; 84702; 85025; 86900; 86901; 99283; 99284-25

== ENCOUNTER 2018-01-18 04:51 | Inpatient (IN) | payer OTHER ==
[2018-01-18] MEDS ORDERED: Nalbuphine 20 MG/ML 1 ML Syringe IVPUSH PRN (05:26)
[2018-01-18] MEDS ORDERED: Sodium Chloride 0.9% 10 ML Syringe FLUSH PRN ×3 (05:26→20:53)
[2018-01-18] MEDS: Lactated Ringers 1,000 ML IV SCH ×4 (05:42→09:14)
[2018-01-18] MEDS ORDERED: ePHEDrine 50 MG/ML SDV IVPUSH PRN ×2 (06:40→20:53)
[2018-01-18] MEDS ORDERED: fentaNYL 100 MCG/2 ML SDV EPIDUR PRN (06:40)
[2018-01-18] MEDS: Bupivacaine/fentaNYL/NS 100 ML Bag EPIDUR SCH ×2 (07:19→14:28)
--- NOTE | 2018-01-18 07:25 | PCM.PREANE ---
Preanesthetic Assessment - Anesthesia/Transfusion/Family Hx Anesthesia History: Prior Anesthesia Without Reaction Family History of Anesthesia Reaction: No Transfusion History: No Prior Transfusion(s) Type of Transfusion Reactions: Reports: Unknown Intubation History: Unknown - Review of Systems General: No Symptoms Pulmonary: No Symptoms Cardiovascular: No Symptoms Gastrointestinal: Abdominal Pain (contractions) Neurological: No Symptoms Other: Reports: Diabetes (gestational) - Physical Assessment Pulse: 99 O2 Sat by Pulse Oximetry: 99 Respiratory Rate: 17 Blood Pressure: 137/93 Temperature: 36.3 C Vital Signs: Last Vital Signs Temp 36.9 C 01/18/18 05:26 Pulse 99 01/18/18 05:26 Resp 17 01/18/18 05:26 BP 137/93 H 01/18/18 05:26 Pulse Ox 99 01/18/18 05:26 Height: 1.63 m Weight: 110.722 kg ASA Class: 2 Mental Status: Alert & Oriented x3 Airway Class: Mallampati = 2 Dentition: Reports: Normal Dentition Thyro-Mental Finger Breadths: 3 Mouth Opening Finger Breadths: 2 ROM/Head Extension: Full Lungs: Clear to Auscultation, Normal Respiratory Effort Cardiovascular: Regular Rate, Regular Rhythm - Lab Values: Laboratory Last Values WBC 14.58 K/mm3 (3.98-10.04) H 01/18/18 05:50 RBC 3.90 M/mm3 (3.98-5.22) L 01/18/18 05:50 Hgb 11.5 gm/L (11.2-15.7) 01/18/18 05:50 Hct 34.7 % (34.1-44.9) 01/18/18 05:50 MCV 89.0 fl (79.4-94.8) 01/18/18 05:50 MCH 29.5 pg (25.6-32.2) 01/18/18 05:50 MCHC 33.1 g/dl (32.2-35.5) 01/18/18 05:50 RDW Std Deviation 46.1 fL (36.4-46.3) 01/18/18 05:50 Plt Count 243 K/mm3 (182-369) 01/18/18 05:50 MPV 10.8 fl (9.4-12.3) 01/18/18 05:50 Neut % (Auto) 72.1 % (34.0-71.1) H 01/18/18 05:50 Lymph % (Auto) 18.0 % (19.3-51.7) L 01/18/18 05:50 [place] % (Auto) 8.2 % (4.7-12.5) 01/18/18 05:50 Eos % (Auto) 0.8 (0.7-5.8) 01/18/18 05:50 Baso % (Auto) 0.1 % (0.1-1.2) 01/18/18 05:50 Neut # (Auto) 10.51 K/mm3 (1.56-6.13) H 01/18/18 05:50 Lymph # (Auto) 2.62 K/mm3 (1.18-3.74) 01/18/18 05:50 [place] # (Auto) 1.19 K/mm3 (0.24-0.36) H 01/18/18 05:50 Eos # (Auto) 0.12 K/mm3 (0.04-0.36) 01/18/18 05:50 Baso # (Auto) 0.02 K/mm3 (0.01-0.08) 01/18/18 05:50 Manual Slide Review Normal smear 01/18/18 05:50 Blood Type A POSITIVE 01/18/18 05:50 Gel Antibody Screen Negative 01/18/18 05:50 - Allergies Allergies/Adverse Reactions: Allergies Allergy/AdvReac Type Severity Reaction Status Date / Time methylprednisolone Allergy Itching Verified 01/18/18 05:26 - Anesthesia Plan Pre-Op Medication Ordered: None - Acknowledgements Anesthesia Type Planned: Epidural PreAnesthesia Questionnaire Respiratory History: Reports: Asthma Gastrointestinal History: Reports: GERD 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: Musculoskeletal History: Reports: Back Pain, Chronic Neurological History: Reports: Migraines Endocrine/Metabolic History: Reports: Diabetes, Gestational Other Endocrine/Metabolic History: diet controlled - Infectious Disease History Infectious Disease History: Reports: Chicken Pox - Past Surgical History GI Surgical History: Reports: Appendectomy, Cholecystectomy - SUBSTANCE USE Smoking Status *Q: Never Smoker Tobacco Use Within Last Twelve Months: No Recreational Drug Use History: No - HOME MEDS Home Medications: Home Meds Pnv No.122/Iron/Folic Acid [ Multi Tablet] 1 tab PO DAILY 06/10/17 [ History] - CURRENT (IN HOUSE) MEDS Current Meds: Current Medications Ephedrine Sulfate (Ephedrine Sulfate) 5 mg IVPUSH ASDIRECTED PRN PRN Reason: HYPOTENTSION Fentanyl (Sublimaze) 100 mcg EPIDUR Q3H PRN PRN Reason: Pain Last Admin: 01/18/18 07:19 Dose: 100 mcg Fentanyl/Bupivacaine HCl (Fentanyl/Bupivacaine/Ns 2 Mcg-0.125% 100 Ml) 100 ml EPIDUR ASDIRECTED MARIANO Last Admin: 01/18/18 07:19 Dose: 100 ml Lactated Ringer's (Ringers, Lactated) 1,000 mls @ 100 mls/hr IV ASDIRECTED MARIANO Last Admin: 01/18/18 07:16 Dose: 500 mls/hr Nalbuphine HCl (Nubain) 10 mg IVPUSH Q2H PRN PRN Reason: pain Sodium Chloride (Saline Flush) 10 ml FLUSH ASDIRECTED PRN PRN Reason: Keep Vein Open Discontinued Medications Pneumococcal Polyvalent Vaccine (Pneumovax 23) 0.5 ml IM .ONCE ONE Stop: 01/18/18 06:03
[2018-01-18] MEDS ORDERED: Oxytocin/Lactated Ringers 10 UNIT/1,000 ML BAG IV SCH (08:45)
--- NOTE | 2018-01-18 10:09 | PCM.LDHP ---
L&D History of Present Illness - General Date of Service: 01/18/18 Admit Problem/Dx: Patient Status Order with Admit Dx/Problem 01/18/18 05:26 Patient Status [ADT] Routine Admission Diagnosis/Problem Admission Diagnosis/Problem Source of Information: Patient History Limitations: Reports: No Limitations - History of Present Illness Introduction:: 27-year-old 002 KAL 01/25/18 at estimated gestational age of 39 weeks 0 days today patient presented to labor and delivery early this morning after spontaneous rupture membranes at 0430 hrs. Patient having irregular contractions upon admission to labor and delivery. Patient has been treated as gestational diabetic during this with a 1 hour 168 but declined 3 hour GTT. Group B strep negative. Blood type A positive, and by screen negative hemoglobin hematocrit 13.6/40.5 platelets 398,000 on 06/20/17. Rubella immune. Serology nonreactive. Urine culture mixed susu. Hepatitis B surface antigen and HIV negative. Chlamydia probe and GC probe negative. On 11/06/17 1 hour OB glucose screen 168. On hemoglobin hematocrit 12.4/37.9 platelets 303,000 12/03/17 group B strep negative. Patient placed in labor and delivery for delivery. 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: Musculoskeletal History: Reports: Back Pain, Chronic Neurological History: Reports: Migraines Endocrine/Metabolic History: Reports: Diabetes, Gestational Other Endocrine/Metabolic History: diet controlled - Infectious Disease History Infectious Disease History: Reports: Chicken Pox - Past Surgical History GI Surgical History: Reports: Appendectomy, Cholecystectomy Social & Family History - Family History Family Medical History: Noncontributory - Tobacco Use Smoking Status *Q: Never Smoker - Caffeine Use Caffeine Use: Reports: Coffee - Recreational Drug Use Recreational Drug Use: No H&P Review of Systems - Review of Systems: Review Of Systems: See Below General: Reports: No Symptoms HEENT: Reports: No Symptoms Pulmonary: Reports: No Symptoms Cardiovascular: Reports: No Symptoms Gastrointestinal: Reports: No Symptoms Genitourinary: Reports: No Symptoms Musculoskeletal: Reports: No Symptoms Skin: Reports: No Symptoms Psychiatric: Reports: No Symptoms Neurological: Reports: No Symptoms Hematologic/Lymphatic: Reports: No Symptoms Immunologic: Reports: No Symptoms L&D Exam - Exam Exam: See Below - Vital Signs Vital Signs: Last Vital Signs Temp 97.3 F 01/18/18 07:25 Pulse 99 01/18/18 07:25 Resp 17 01/18/18 07:25 BP 137/93 H 01/18/18 07:25 Pulse Ox 99 01/18/18 07:25 Weight: 244 lb 1.6 oz - OB Specific Fundal Height In cm: 40 Contraction Duration (sec): 30 Contraction Frequency (min): 7 Contraction Intensity: Mild to Moderate Movement: Active Heart Tones: Present Heart Tones per Min: 135 Heart Rate (FHR) Variability: Moderate (6-25 bmp) Presentation: Vertex - Duong Score Duong Score Cervix Position: Midposition Duong Score Consistency: Soft Duong Score Effacement: >80% Duong Score Dilation: 3-4 cm Duong Score Infant's Station: -2 Duong Score Total: 9 - Exam General: Alert, Oriented HEENT: Conjunctiva Clear, Mucosa Moist & [place], PERRLA Neck: Supple, Trachea Midline Lungs: Clear to Auscultation, Normal Respiratory Effort Cardiovascular: Regular Rate, Regular Rhythm GI/Abdominal Exam: Normal Bowel Sounds, Soft Genitourinary: Normal external exam Extremities: Normal Inspection, Normal Range of Motion, Non-Tender, No Pedal Edema, Normal Capillary Refill Skin: Warm, Dry, Intact Psychiatric: Alert, Normal Affect, Normal Mood - Patient Data Lab Results Last 24 hrs: Laboratory Results - last 24 hr 01/18/18 01/18/18 Range/Units 05:50 05:50 WBC 14.58 H (3.98-10.04) K/mm3 RBC 3.90 L (3.98-5.22) M/mm3 Hgb 11.5 (11.2-15.7) gm/L Hct 34.7 (34.1-44.9) % MCV 89.0 (79.4-94.8) fl MCH 29.5 (25.6-32.2) pg MCHC 33.1 (32.2-35.5) g/dl RDW Std Deviation 46.1 (36.4-46.3) fL Plt Count 243 (182-369) K/mm3 MPV 10.8 (9.4-12.3) fl Neut % (Auto) 72.1 H (34.0-71.1) % Lymph % (Auto) 18.0 L (19.3-51.7) % [place] % (Auto) 8.2 (4.7-12.5) % Eos % (Auto) 0.8 (0.7-5.8) Baso % (Auto) 0.1 (0.1-1.2) % Neut # (Auto) 10.51 H (1.56-6.13) K/mm3 Lymph # (Auto) 2.62 (1.18-3.74) K/mm3 [place] # (Auto) 1.19 H (0.24-0.36) K/mm3 Eos # (Auto) 0.12 (0.04-0.36) K/mm3 Baso # (Auto) 0.02 (0.01-0.08) K/mm3 Manual Slide Review Normal smear Blood Type A POSITIVE Gel Antibody Screen Negative Result Diagrams: 01/18/18 05:50 - Problem List (1) 39 weeks gestation of SNOMED Code(s): 01724100 ICD Code: Z3A.39 - 39 WEEKS GESTATION OF Status: Acute Current Visit: Yes (2) Gestational diabetes mellitus (GDM) affecting third SNOMED Code(s): 16592184785487 ICD Code: O24.419 - GESTATIONAL DIABETES MELLITUS IN , UNSP CONTROL Status: Acute Current Visit: Yes Problem List Initiated/Reviewed/Updated: No Orders Last 24hrs: Active Orders 24 hr Category Date Time Status Patient Status [ADT] Routine ADT 01/18/18 05:26 Active Activity as Tolerated [RC] PFP Care 01/18/18 05:26 Active Communication Order [RC] ASDIRECTED Care 01/18/18 05:26 Active Communication Order [RC] ASDIRECTED Care 01/18/18 06:40 Active Cooling Warming Measures [RC] ASDIRECTED Care 01/18/18 06:40 Active Notify Provider [RC] ASDIRECTED Care 01/18/18 06:40 Active Notify Provider [RC] PFP Care 01/18/18 05:26 Active Notify Provider [RC] PRN Care 01/18/18 05:26 Active Oxygen Therapy [RC] ASDIRECTED Care 01/18/18 06:40 Active Peripheral IV Care [RC] . DIRECTED Care 01/18/18 05:27 Active Pulse Oximetry [RC] ASDIRECTED Care 01/18/18 06:40 Active Vital Signs [RC] .PRN Care 01/18/18 06:40 Active Vital Signs [RC] PER UNIT ROUTINE Care 01/18/18 05:26 Active Regular Diet [DIET] Diet 01/18/18 Breakfast Active RAPID PLASMA REAGIN,RPR [CHEM] Routine Lab 01/18/18 05:50 Received Bupivacaine/fentaNYL/NS [fentaNYL/Bupivacaine/NS 2 MCG- Med 01/18/18 06:45 Active 0.125% 100 ML] 100 ml EPIDUR ASDIRECTED Lactated Ringers [Ringers, Lactated] 1,000 ml Med 01/18/18 05:30 Active IV ASDIRECTED Nalbuphine [Nubain] Med 01/18/18 05:26 Active 10 mg IVPUSH Q2H PRN Oxytocin/Lactated Ringers [Pitocin in LR 10 Units/1,000 Med 01/18/18 08:45 Active ML] 10 unit in 1,000 ml IV TITRATE Sodium Chloride 0.9% [Saline Flush] Med 01/18/18 05:26 Active 10 ml FLUSH ASDIRECTED PRN ePHEDrine [ePHEDrine Sulfate] Med 01/18/18 06:40 Active 5 mg IVPUSH ASDIRECTED PRN fentaNYL [Sublimaze] Med 01/18/18 06:40 Active 100 mcg EPIDUR Q3H PRN Electronic Heart Tones Ext w TOCO [WOMSER] Oth 01/18/18 05:26 Ordered Routine Electronic Heart Tones Internal [WOMSER] Per Unit Oth 01/18/18 05:26 Ordered Routine Peripheral IV Insertion Adult [OM.PC] Routine Oth 01/18/18 05:26 Ordered Resuscitation Status Routine Resus Stat 01/18/18 05:26 Ordered Medication Orders Ephedrine Sulfate (Ephedrine Sulfate) 5 mg IVPUSH ASDIRECTED PRN PRN Reason: HYPOTENTSION Fentanyl (Sublimaze) 100 mcg EPIDUR Q3H PRN PRN Reason: Pain Last Admin: 01/18/18 07:19 Dose: 100 mcg Fentanyl/Bupivacaine HCl (Fentanyl/Bupivacaine/Ns 2 Mcg-0.125% 100 Ml) 100 ml EPIDUR ASDIRECTED MARIANO Last Admin: 01/18/18 07:19 Dose: 100 ml Lactated Ringer's (Ringers, Lactated) 1,000 mls @ 100 mls/hr IV ASDIRECTED MARIANO Last Admin: 01/18/18 09:14 Dose: 500 mls/hr Infusion: 01/18/18 09:14 Dose: 500 mls/hr Admin: 01/18/18 07:16 Dose: 500 mls/hr Infusion: 01/18/18 07:16 Dose: 999 mls/hr Admin: 01/18/18 06:16 Dose: 999 mls/hr Infusion: 01/18/18 06:16 Dose: 999 mls/hr Admin: 01/18/18 05:42 Dose: 999 mls/hr Oxytocin/Lactated Ringer's (Pitocin In Lr 10 Units/1,000 Ml) 10 unit in 1,000 mls @ 12 mls/hr IV TITRATE MARIANO; Protocol Last Admin: 01/18/18 09:12 Dose: 2 munits/min, 12 mls/hr Nalbuphine HCl (Nubain) 10 mg IVPUSH Q2H PRN PRN Reason: pain Sodium Chloride (Saline Flush) 10 ml FLUSH ASDIRECTED PRN PRN Reason: Keep Vein Open Assessment/Plan Comment:: Plan delivery.
[2018-01-18] MEDS ORDERED: Oxytocin/Lactated Ringers 20 UNIT/1,000 ML BAG IV ONE (13:16)
[2018-01-18] MEDS ORDERED: Acetaminophen 325 MG Tab PO ONE (13:52)
--- NOTE | 2018-01-18 16:40 | PCM.SN ---
- Free Text/Narrative Note: 01/18/2018 1635 UAC placed without difficulty. Cervix is 5 cm, 80%, soft, midposition, vertex, - 1 cat I FHR. Pitocin augmentation continues. EFW 8# 8 oz largest prior vagina delivery 7#8 oz and "difficult" according to the patient.
[2018-01-18] MEDS ORDERED: Metoclopramide 10 MG/2 ML SDV ONE (19:20)
[2018-01-18] MEDS ORDERED: Citric Acid/Sodium Citrate Solution 30 ML Cup ONE (19:20)
[2018-01-18] MEDS ORDERED: Metoclopramide 10 MG/2 ML SDV IVPUSH ONE (19:21)
[2018-01-18] MEDS ORDERED: Citric Acid/Sodium Citrate Solution 30 ML Cup PO ONE (19:21)
[2018-01-18] MEDS ORDERED: ceFAZolin 2 GM in Premix Bag 1 BAG IV ONE (19:21)
[2018-01-18] MEDS ORDERED: ceFAZolin 1 GM Vial ONE (19:30)
[2018-01-18] MEDS ORDERED: Phenylephrine 1% 10 MG/ML SDV ONE (19:30)
[2018-01-18] MEDS ORDERED: Lidocaine 2% with EPINEPHrine 1:200,000 20 ML SDV ONE (19:32)
[2018-01-18] MEDS ORDERED: Bupivacaine 0.5% 30 ML SDV ONE (19:33)
[2018-01-18] MEDS ORDERED: Morphine PF 1 MG/ML Amp ONE (19:36)
[2018-01-18] MEDS ORDERED: Lactated Ringers 1,000 ML ONE ×2 (19:38→20:26)
--- NOTE | 2018-01-18 19:48 | PCM.SN ---
- Free Text/Narrative Note: Patient had UAC placed, oxytocin increased to confirm adequate contractions with no additional progress cervix remains unchanged from previous exams will proceed with section. Talked with patient and family and they are in agreement with same.
[2018-01-18] MEDS ORDERED: Oxytocin 10 Units/1 ML SDV ONE (20:26)
[2018-01-18] MEDS ORDERED: Ketorolac 30 MG/ML SDV ONE (20:26)
[2018-01-18] MEDS ORDERED: fentaNYL 100 MCG/2 ML SDV IVPUSH PRN (20:45)
--- NOTE | 2018-01-18 20:45 | PCM.OPNOTE ---
- General Post-Op/Procedure Note Date of Surgery/Procedure: 01/18/18 Operative Procedure(s): Primary low segment transverse Pre Op Diagnosis: 39 weeks gestation, gestational diabetes, failure to progress Post-Op Diagnosis: Same Anesthesia Technique: Epidural Primary Surgeon: Azael Theodore Anesthesia Provider: Zain Keenan Records Management Coordinator: Liliana Preston (PAS) Reason Records Management Coordinator Was Necessary: Student education Role of Records Management Coordinator: Student education Fluid Replacement, Intraop: 2,000 Output, Urine Amount: 450 EBL in mLs: 500 Drain/Tube Comments:: Martin Complications: None Condition: Good Free Text/Narrative:: Intake & Output 01/18/18 01/18/18 01/18/18 06:59 14:59 22:59 Intake Total 1000 1000 2000 Output Total 700 Balance 1000 1000 1300 Patient was transported to the operating room and placed under epidural anesthesia in the supine position with wedge under the right hip and right flank. SCDs in place and functioning prior surgery. Ancef 2 g given intravenously prior surgery. Patient prepared and draped in a sterile fashion. Timeout performed confirming name, date of , procedure as section. Adequate level of anesthesia was confirmed. Patient's friend brought to the operating room. Pfannenstiel incision was made and care was sharp section to into the anterior fascia peritoneal cavity was entered without difficulty, bladder flap created pushed caudad. Low segment transverse C- section performed amnionic fluid clear upon entry into the amnionic cavity. The was delivered right occiput anterior utilizing vacuum extraction times one in the green for less than [address] 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 on Saturday01/18/18 weighing 30/5/60 grams/7 lbs. 14 oz. Apgars 8/9. Cord blood collected from three-vessel cord. Placenta removed manually. Endometrial cavity inspected and free of placental membranes remnants. Sponge needle pack instrument count correct times one and the uterine incision closed in 2 layers. First layer running locking suture of 0 Monocryl. Second layer horizontal imbricating suture modified Lembert type 0 Monocryl. Hemostasis was obtained without difficulty. Both tubes and ovaries were normal. Clots were cleaned from the gutters and cul-de-sac. Uterus replaced into the abdominal cavity sponge needle pack instrument and sharp count correct 2 and the abdominal cavity was closed with #1 PDS for the anterior fascia. Subcutaneous tissue was closed with 0 Monocryl interrupted 3. Skin was closed subcuticular 3-0 Monocryl [place] needle. Dermabond Preneo applied. Clots cleaned from the vagina at the end the procedure. Patient transported postanesthesia care unit in satisfactory condition no blood transfusions required.
--- NOTE | 2018-01-18 20:47 | PCM.POSTAN ---
POST ANESTHESIA ASSESSMENT - MENTAL STATUS Mental Status: Alert, Oriented - VITAL SIGNS Pulse Rate: 78 SaO2: 96 Resp Rate: 23 Blood Pressure: 109/53 Temperature: 36.7 C - RESPIRATORY Respiratory Status: Respiratory Rate WNL, Airway Patent, O2 Saturation Stable, Supplemental Oxygen - CARDIOVASCULAR CV Status: Pulse Rate WNL, Blood Pressure Stable - GASTROINTESTINAL GI Status: No Symptoms - PAIN Pain Score: 0 - POST OP HYDRATION Hydration Status: Adequate & Stable - OBSERVATIONS Free Text/Narrative:: no anesthesia complications noted
[2018-01-18] MEDS ORDERED: Lanolin 100% Cream 7 GM Tube TOP PRN (20:53)
[2018-01-18] MEDS ORDERED: Docusate Sodium 100 MG Cap PO PRN (20:53)
[2018-01-18] MEDS ORDERED: Acetaminophen 325 MG Tab PO PRN (20:53)
[2018-01-18] MEDS ORDERED: diphenhydrAMINE 50 MG/ML SDV IVPUSH PRN (20:53)
[2018-01-18] MEDS ORDERED: Naloxone 0.4 MG/ML SDV IVPUSH PRN (20:53)
[2018-01-18] MEDS ORDERED: Ondansetron 4 MG/2 ML SDV IV PRN (20:53)
[2018-01-18] MEDS ORDERED: Dextrose 5%-Lactated Ringers 1,000 ML IV SCH (21:00)
[2018-01-18] MEDS ORDERED: Bupivacaine 0.25% 10 ML SDV ONE (22:00)
[2018-01-18] MEDS: Simethicone 80 MG Tab.Chew PO SCH (22:58)
[2018-01-18] MEDS: Acetaminophen/oxyCODONE 325-5 MG Tab PO PRN (23:00)
[2018-01-19] MEDS: Ketorolac 30 MG/ML SDV IVPUSH SCH ×3 (02:36→15:50)
[2018-01-19] MEDS: Acetaminophen/oxyCODONE 325-5 MG Tab PO PRN ×3 (07:01→20:06)
[2018-01-19] MEDS: Simethicone 80 MG Tab.Chew PO SCH ×4 (08:18→23:24)
--- NOTE | 2018-01-19 10:03 | PCM.SN ---
- Free Text/Narrative Note: 01/19/2018 1000 Afebril. Chest clear. Heart normal sounds. Abdomen uterus involuting normally. Incision normal. No heavy vaginal bleeding. No leg cramping. Doing well.
[2018-01-19] MEDS: Ibuprofen 600 MG Tab PO PRN (22:51)
[2018-01-20] MEDS: Acetaminophen/oxyCODONE 325-5 MG Tab PO PRN ×5 (05:47→23:37)
--- NOTE | 2018-01-20 08:20 | PCM.SN ---
- Free Text/Narrative Note: 01/20/18 0820 hrs. Chest clear heart sounds normal abdomen soft uterus involuting normally, incision normal. No heavy vaginal bleeding. No leg cramping. Patient will states today and be dismissed tomorrow.
[2018-01-20] MEDS: Ibuprofen 600 MG Tab PO PRN ×3 (09:30→23:35)
[2018-01-20] MEDS: Simethicone 80 MG Tab.Chew PO SCH ×4 (09:31→23:35)
[2018-01-20] MEDS: Pneumococcal Polyvalent-23 Vaccine 0.5 ML SDV IM ONE ×2 (09:32→09:54)
[2018-01-21] MEDS: Ibuprofen 600 MG Tab PO PRN (05:11)
[2018-01-21 05:17] VITALS: BP 112/73
--- NOTE | 2018-01-21 07:47 | PCM.DCSUM1 ---
Discharge Summary - Hospital Course Free Text/Narrative:: [facility] Post-Op/Procedure Note Patient Name: MADHAV CHI Date of : 86 Patient Status: Inpatient Attending Provider: Azael Theodore Date: 01/18/18 20:40 Initialization Date: 01/18/18 20:40 - General Post-Op/Procedure Note Date of Surgery/Procedure: 01/18/18 Operative Procedure(s): Primary low segment transverse Pre Op Diagnosis: 39 weeks gestation, gestational diabetes, failure to progress Post-Op Diagnosis: Same Anesthesia Technique: Epidural Primary Surgeon: Azael Theodore Anesthesia Provider: Zain Keenan Director Of Grants: Liliana Preston ([employer]) Reason Director Of Grants Was Necessary: Student education Role of Director Of Grants: Student education Fluid Replacement, Intraop: 2,000 Output, Urine Amount: 450 EBL in mLs: 500 Drain/Tube Comments:: Martin Complications: None Condition: Good Free Text/Narrative:: Intake & Output 01/18/18 01/18/18 01/18/18 06:59 14:59 22:59 Intake Total 1000 1000 2000 Output Total 700 Balance 1000 1000 1300 Patient was transported to the operating room and placed under epidural anesthesia in the supine position with wedge under the right hip and right flank. SCDs in place and functioning prior surgery. Ancef 2 g given intravenously prior surgery. Patient prepared and draped in a sterile fashion. Timeout performed confirming name, date of , procedure as section. Adequate level of anesthesia was confirmed. Patient's friend brought to the operating room. Pfannenstiel incision was made and care was sharp section to into the anterior fascia peritoneal cavity was entered without difficulty, bladder flap created pushed caudad. Low segment transverse C- section performed amnionic fluid clear upon entry into the amnionic cavity. The was delivered right occiput anterior utilizing vacuum extraction times one in the green for less than [address] Crouch medical grade shoemaker in attendance at delivery female liveborn at 2009 hrs. on Saturday01/18/18 weighing 30/5/60 grams/7 lbs. 14 oz. Apgars 8/9. Cord blood collected from three-vessel cord. Placenta removed manually. Endometrial cavity inspected and free of placental membranes remnants. Sponge needle pack instrument count correct times one and the uterine incision closed in 2 layers. First layer running locking suture of 0 Monocryl. Second layer horizontal imbricating suture modified Lembert type 0 Monocryl. Hemostasis was obtained without difficulty. Both tubes and ovaries were normal. Clots were cleaned from the gutters and cul-de-sac. Uterus replaced into the abdominal cavity sponge needle pack instrument and sharp count correct 2 and the abdominal cavity was closed with #1 PDS for the anterior fascia. Subcutaneous tissue was closed with 0 Monocryl interrupted 3. Skin was closed subcuticular 3-0 Monocryl Clinton needle. Dermabond Preneo applied. Clots cleaned from the vagina at the end the procedure. Patient transported postanesthesia care unit in satisfactory condition no blood transfusions required. HPI Initial Comments: [facility] Post-Op/Procedure Note Patient Name: MADHAV CHI Date of : 86 Patient Status: Inpatient Attending Provider: Azael Theodore Date: 01/18/18 20:40 Initialization Date: 01/18/18 20:40 - General Post-Op/Procedure Note Date of Surgery/Procedure: 01/18/18 Operative Procedure(s): Primary low segment transverse Pre Op Diagnosis: 39 weeks gestation, gestational diabetes, failure to progress Post-Op Diagnosis: Same Anesthesia Technique: Epidural Primary Surgeon: Azael Theodore Anesthesia Provider: Zain Keenan Director Of Grants: Liliana Preston ([facility]) Reason Director Of Grants Was Necessary: Student education Role of Director Of Grants: Student education Fluid Replacement, Intraop: 2,000 Output, Urine Amount: 450 EBL in mLs: 500 Drain/Tube Comments:: Martin Complications: None Condition: Good Free Text/Narrative:: Intake & Output 01/18/18 01/18/18 01/18/18 06:59 14:59 22:59 Intake Total 1000 1000 2000 Output Total 700 Balance 1000 1000 1300 Patient was transported to the operating room and placed under epidural anesthesia in the supine position with wedge under the right hip and right flank. SCDs in place and functioning prior surgery. Ancef 2 g given intravenously prior surgery. Patient prepared and draped in a sterile fashion. Timeout performed confirming name, date of , procedure as section. Adequate level of anesthesia was confirmed. Patient's friend brought to the operating room. Pfannenstiel incision was made and care was sharp section to into the anterior fascia peritoneal cavity was entered without difficulty, bladder flap created pushed caudad. Low segment transverse C- section performed amnionic fluid clear upon entry into the amnionic cavity. The infant was delivered right occiput anterior utilizing vacuum extraction times one in the green for less than [address] Crouch medical grade shoemaker in attendance at delivery female liveborn at 2009 hrs. on Saturday01/18/18 weighing 30/5/60 grams/7 lbs. 14 oz. Apgars 8/9. Cord blood collected from three-vessel cord. Placenta removed manually. Endometrial cavity inspected and free of placental membranes remnants. Sponge needle pack instrument count correct times one and the uterine incision closed in 2 layers. First layer running locking suture of 0 Monocryl. Second layer horizontal imbricating suture modified Lembert type 0 Monocryl. Hemostasis was obtained without difficulty. Both tubes and ovaries were normal. Clots were cleaned from the gutters and cul-de-sac. Uterus replaced into the abdominal cavity sponge needle pack instrument and sharp count correct 2 and the abdominal cavity was closed with #1 PDS for the anterior fascia. Subcutaneous tissue was closed with 0 Monocryl interrupted 3. Skin was closed subcuticular 3-0 Monocryl Clinton needle. Dermabond Preneo applied. Clots cleaned from the vagina at the end the procedure. Patient transported postanesthesia care unit in satisfactory condition no blood transfusions required. Brief History: [facility] . Post-Op/Procedure Note. [facility]: [id number]. Date of : [birth year]Patient Status: Inpatient. Attending Provider: Azael Theodoreount Number: [id number]. Date: 01/18/18 20:40Initialization Date: 01/18/18 20:40. - General Post-Op/Procedure Note. Date of Surgery/Procedure: 01/18/18. Operative Procedure(s): Primary low segment transverse . Pre Op Diagnosis: 39 weeks gestation, gestational diabetes, failure to progress. Post- Op Diagnosis: Same. Anesthesia Technique: Epidural. Primary Surgeon: Azael Theodore. Anesthesia Provider: Zain Keenan. Director Of Grants: Liliana Preston ( [facility]). Reason Director Of Grants Was Necessary: Student education. Role of Director Of Grants: Student education. Fluid Replacement, Intraop: 2,000. Output, Urine Amount: 450. EBL in mLs: 500. Drain/Tube Comments:: Martin. Complications: None. Condition: Good. Free Text/Narrative:: Intake & Output. 01/19/1808/. 06:5914:[id number]:[id number]. Intake [id number]. Output [id number]. [id number]. Patient was transported to the operating room and placed under epidural anesthesia in the supine position with wedge under the right hip and right flank. SCDs in place and functioning prior surgery. Ancef 2 g given intravenously prior surgery. Patient prepared and draped in a sterile fashion. Timeout performed confirming name, date of , procedure as section. Adequate level of anesthesia was confirmed. Patient's friend brought to the operating room. Pfannenstiel incision was made and care was sharp section to into the anterior fascia peritoneal cavity was entered without difficulty, bladder flap created pushed caudad. Low segment transverse C- section performed amnionic fluid clear upon entry into the amnionic cavity. The was delivered right occiput anterior utilizing vacuum extraction times one in the green for less than [address] Crouch medical grade shoemaker in attendance at delivery female liveborn at 2009 hrs. on Saturday01/18/18 weighing 30/5/60 grams/7 lbs. 14 oz. Apgars 8/9. Cord blood collected from three-vessel cord. Placenta removed manually. Endometrial cavity inspected and free of placental membranes remnants. Sponge needle pack instrument count correct times one and the uterine incision closed in 2 layers. First layer running locking suture of 0 Monocryl. Second layer horizontal imbricating suture modified Lembert type 0 Monocryl. Hemostasis was obtained without difficulty. Both tubes and ovaries were normal. Clots were cleaned from the gutters and cul-de-sac. Uterus replaced into the abdominal cavity sponge needle pack instrument and sharp count correct 2 and the abdominal cavity was closed with #1 PDS for the anterior fascia. Subcutaneous tissue was closed with 0 Monocryl interrupted 3. Skin was closed subcuticular 3-0 Monocryl Clinton needle. Dermabond Preneo applied. Clots cleaned from the vagina at the end the procedure. Patient transported postanesthesia care unit in satisfactory condition no blood transfusions required. Diagnosis: Stroke: No - Discharge Data Discharge Date: 01/21/18 Discharge Disposition: Home, Self-Care 01 Condition: Good - Discharge Diagnosis/Problem(s) (1) 39 weeks gestation of SNOMED Code(s): 58409899 ICD Code: Z3A.39 - 39 WEEKS GESTATION OF Status: Acute Current Visit: Yes (2) Gestational diabetes mellitus (GDM) affecting third SNOMED Code(s): 63685374157245 ICD Code: O24.419 - GESTATIONAL DIABETES MELLITUS IN , UNSP CONTROL Status: Acute Current Visit: Yes (3) Failure to progress in labor, delivered, current hospitalization SNOMED Code(s): 511589715 ICD Code: O62.2 - OTHER UTERINE INERTIA Status: Acute Current Visit: Yes - Patient Summary/Data Operative Procedure(s) Performed: Primary low segment transverse Complications: None Consults: None Hospital Course: Uneventful - Patient Instructions Diet: Usual Diet as Tolerated Driving: Do Not Drive ([address] not drive for 48 hours after last dose of Percocet) Showering/Bathing: May Shower, No Tub Bathing/Swimming (6 weeks) Wound/Incision Care: Keep Operative Site/Wound Site Clean and Dry Notify Provider of: Fever, Increased Pain, Swelling and Redness, Drainage, Nausea and/or Vomiting - Discharge Plan *PRESCRIPTION DRUG MONITORING PROGRAM REVIEWED*: Yes *COPY OF PRESCRIPTION DRUG MONITORING REPORT IN PATIENT CAM: Yes (No history of meds found in BASS 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[employer]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) Prescriptions/Med Rec: Acetaminophen/oxyCODONE [Percocet 325-5 MG] 1 tab PO Q6H PRN #10 tablet PRN Reason: Pain (Moderate 4-6) Sertraline [Zoloft] 50 mg PO BEDTIME #30 tab Home Medications: Home Meds Pnv No.122/Iron/Folic Acid [ Multi Tablet] 1 tab PO DAILY 06/10/17 [ History] Acetaminophen [Tylenol] 650 mg PO Q4H PRN tablet 01/21/18 [Rx] Acetaminophen/oxyCODONE [Percocet 325-5 MG] 1 tab PO Q6H PRN #10 tablet [Rx] Docusate Sodium [Colace] 100 mg PO Q12H PRN cap 01/21/18 [Rx] Ibuprofen [Motrin] 600 mg PO Q6H PRN tablet 01/21/18 [Rx] Lanolin [Lansinoh HPA] 1 applic TOP ASDIRECTED PRN tube 01/21/18 [Rx] Sertraline [Zoloft] 50 mg PO BEDTIME #30 tab 01/21/18 [Rx] Simethicone 80 mg PO PCBED tab.chew 01/21/18 [Rx] Patient Handouts: Home Care Instructions for Mom, Tips for a Good Latch, Incision Care, Adult Referrals: Epifanio Fonseca MD [Physician] - (Has appointment to see him / postop 2 weeks) - Discharge Summary/Plan Comment DC Time >30 min.: No - Patient Data Vitals - Most Recent: Last Vital Signs Temp 98.1 F 01/21/18 05:00 Pulse 64 01/21/18 05:02 Resp 16 01/21/18 05:00 BP 112/73 01/21/18 05:02 Pulse Ox 97 01/21/18 05:02 Weight - Most Recent: 244 lb 1.6 oz I&O - Last 24 hours: Intake & Output 01/20/18 01/21/18 01/21/18 22:59 06:59 14:59 Intake Total 240 Balance 240 Lab Results - Last 24 hrs: Laboratory Results - last 24 hr 01/18/18 Range/Units 05:50 RPR Non-reactive (NONREACTIVE) Med Orders - Current: Current Medications Acetaminophen (Tylenol) 650 mg PO Q4H PRN PRN Reason: mild pain or fever Diphenhydramine HCl (Benadryl) 25 mg IVPUSH Q6H PRN PRN Reason: Itching or Nausea Last Admin: 01/19/18 00:38 Dose: 25 mg Docusate Sodium (Colace) 100 mg PO Q12H PRN PRN Reason: Constipation Last Admin: 01/20/18 12:18 Dose: 100 mg Emollient Ointment (Lansinoh Hpa) 0 gm TOP ASDIRECTED PRN PRN Reason: Sore Nipples Ephedrine Sulfate (Ephedrine Sulfate) 5 mg IVPUSH SEECOMMENT PRN PRN Reason: Other Ibuprofen (Motrin) 600 mg PO Q6H PRN PRN Reason: mild pain or fever Last Admin: 01/21/18 05:11 Dose: 600 mg Naloxone HCl (Narcan) 0.1 mg IVPUSH SEECOMMENT PRN PRN Reason: Respiratory Depression Ondansetron HCl (Zofran) 4 mg IV Q4H PRN PRN Reason: Nausea/Vomiting Oxycodone/Acetaminophen (Percocet 325-5 Mg) 2 tab PO Q4H PRN PRN Reason: Pain (moderate 4-6) Last Admin: 01/20/18 23:37 Dose: 2 tab Simethicone (Simethicone) 80 mg PO PCBED MARIANO Last Admin: 01/20/18 23:35 Dose: 80 mg Sodium Chloride (Saline Flush) 10 ml FLUSH ASDIRECTED PRN PRN Reason: Keep Vein Open Discontinued Medications Acetaminophen (Tylenol) 650 mg PO NOW ONE Stop: 01/18/18 13:53 Last Admin: 01/18/18 14:09 Dose: 650 mg Bupivacaine HCl (Marcaine 0.5%) Confirm Administered Dose 30 ml .ROUTE .STK-MED ONE Stop: 01/18/18 19:34 Last Admin: 01/18/18 20:04 Dose: 20 ml Cefazolin Sodium (Ancef) Confirm Administered Dose 2 gm .ROUTE .STK-MED ONE Stop: 01/18/18 19:31 Citric Acid/Sodium Citrate (Bicitra Solution) Confirm Administered Dose 30 ml .ROUTE .STK-MED ONE Stop: 01/18/18 19:21 Last Admin: 01/18/18 19:46 Dose: Not Given Citric Acid/Sodium Citrate (Bicitra Solution) 30 ml PO ONETIME ONE Stop: 01/18/18 19:22 Last Admin: 01/18/18 19:46 Dose: 30 ml Ephedrine Sulfate (Ephedrine Sulfate) 5 mg IVPUSH ASDIRECTED PRN PRN Reason: HYPOTENTSION Fentanyl (Sublimaze) 100 mcg EPIDUR Q3H PRN PRN Reason: Pain Last Admin: 01/18/18 07:19 Dose: 100 mcg Fentanyl (Sublimaze) 50 mcg IVPUSH Q5M PRN PRN Reason: Pain Fentanyl/Bupivacaine HCl (Fentanyl/Bupivacaine/Ns 2 Mcg-0.125% 100 Ml) 100 ml EPIDUR ASDIRECTED MARIANO Last Admin: 01/18/18 14:28 Dose: 100 ml Lactated Ringer's (Ringers, Lactated) 1,000 mls @ 100 mls/hr IV ASDIRECTED MARIANO Last Admin: 01/18/18 09:14 Dose: 500 mls/hr Oxytocin/Lactated Ringer's (Pitocin In Lr 10 Units/1,000 Ml) 10 unit in 1,000 mls @ 12 mls/hr IV TITRATE MARIANO; Protocol Last Titration: 01/18/18 18:55 Dose: 24 munits/min, 144 mls/hr Oxytocin/Lactated Ringer's (Pitocin In Lr 20 Units/1,000 Ml) Confirm Administered Dose 20 unit in 1,000 mls @ as directed IV .STK-MED ONE Stop: 01/18/18 13:17 Last Admin: 01/18/18 23:16 Dose: Not Given Cefazolin Sodium/Dextrose 2 gm (/ Premix) 50 mls @ 100 mls/hr IV ONETIME ONE Stop: 01/18/18 19:50 Last Admin: 01/18/18 23:16 Dose: Not Given Oxytocin 20 unit/ Lactated (Ringer's) 1,002 mls @ 500 mls/hr IV TITRATE MARIANO; Protocol Lactated Ringer's (Ringers, Lactated) Confirm Administered Dose 1,000 mls @ as directed .ROUTE .STK-MED ONE Stop: 01/18/18 19:39 Lactated Ringer's (Ringers, Lactated) Confirm Administered Dose 1,000 mls @ as directed .ROUTE .STK-MED ONE Stop: 01/18/18 20:27 Dextrose/Lactated Ringer's (Dextrose 5%-Lactated Ringers) 1,000 mls @ 125 mls/ hr IV ASDIRECTED MARIANO Stop: 01/19/18 04:59 Last Admin: 01/18/18 23:39 Dose: 125 mls/hr Ketorolac Tromethamine (Toradol) Confirm Administered Dose 30 mg .ROUTE .STK- MED ONE Stop: 01/18/18 20:27 Ketorolac Tromethamine (Toradol) 30 mg IVPUSH Q6H MARIANO Stop: 01/19/18 14:31 Last Admin: 01/19/18 15:50 Dose: 30 mg Lidocaine/Epinephrine (Xylocaine-Mpf 2%-Epi 1:200,000) Confirm Administered Dose 20 ml .ROUTE .STK-MED ONE Stop: 01/18/18 19:33 Metoclopramide HCl (Reglan) Confirm Administered Dose 10 mg .ROUTE .STK-MED ONE Stop: 01/18/18 19:21 Last Admin: 01/18/18 19:46 Dose: Not Given Metoclopramide HCl (Reglan) 10 mg IVPUSH ONETIME ONE Stop: 01/18/18 19:22 Last Admin: 01/18/18 19:46 Dose: 10 mg Morphine Sulfate (Duramorph Pf) Confirm Administered Dose 1 mg .ROUTE .STK-MED ONE Stop: 01/18/18 19:37 Nalbuphine HCl (Nubain) 10 mg IVPUSH Q2H PRN PRN Reason: pain Oxytocin (Pitocin) Confirm Administered Dose 20 unit .ROUTE .STK-MED ONE Stop: 01/18/18 20:27 Phenylephrine HCl (Fabrizio-Synephrine) Confirm Administered Dose 10 mg .ROUTE .STK- MED ONE Stop: 01/18/18 19:31 Pneumococcal Polyvalent Vaccine (Pneumovax 23) 0.5 ml IM .ONCE ONE Stop: 01/18/18 06:03 Last Admin: 01/20/18 09:54 Dose: Not Given Sodium Chloride (Saline Flush) 10 ml FLUSH ASDIRECTED PRN PRN Reason: Keep Vein Open Sodium Chloride (Saline Flush) 10 ml FLUSH ASDIRECTED PRN PRN Reason: Keep Vein Open
== END 2018-01-21 09:25 | disposition home or self-care (01) | DRG 766 ==
LOC: JD.OBCHECK 04:51 → JD.OB 05:00 → JD.OBCHECK 05:26 → OBSVTOIN 20:09 → JD.OB 20:10
PROVIDERS: ADMIT Obstetrics & Gynecology; ATTEND Obstetrics & Gynecology
PROC: 10H07YZ Insertion of Other Device into Products of Conception, Via Natural or Artificial Opening (ICD-10-PCS; principal; 2018-01-18)
PROC: 10D00Z1 Extraction of Products of Conception, Low, Open Approach (ICD-10-PCS; principal; 2018-01-18)
PROC: 3E0R3BZ Introduction of Anesthetic Agent into Spinal Canal, Percutaneous Approach (ICD-10-PCS; 2018-01-18)
PROC: 00HU33Z Insertion of Infusion Device into Spinal Canal, Percutaneous Approach (ICD-10-PCS; 2018-01-18)
PROC: 3E0234Z Introduction of Serum, Toxoid and Vaccine into Muscle, Percutaneous Approach (ICD-10-PCS; 2018-01-20)
DX: O24.420 Gestational diabetes mellitus in childbirth, diet controlled (principal); Z37.0 Single live birth; Z3A.39 39 weeks gestation of pregnancy; Z88.8 Allergy status to other drugs, medicaments and biological substances; Z90.49 Acquired absence of other specified parts of digestive tract; O62.2 Other uterine inertia; Z23 Encounter for immunization
CPT/HCPCS: 01967; 01968; 36415; 51702; 59025; 85025; 86592; 86850; 86900; 86901; 90732; A9270-GY; G0009; J0690; J1200; J1885; J2274; J2370; J2590; J2765; J3010; J3490; J7042; J7120

== ENCOUNTER 2019-03-07 20:03 | Emergency (ER) | payer BC, OTHER ==
[2019-03-07 20:12] VITALS: BP 137/108; PULSE 110
[2019-03-07] MEDS ORDERED: FLU Vacc QS2019-20(6MOS+)/PF 60 MCG/0.5 ML SYRINGE IM ONE (20:30)
--- NOTE | 2019-03-07 20:44 | EDM.PDOC ---
ED HPI GENERAL MEDICAL PROBLEM - General Chief Complaint: Neck Problem Stated Complaint: NECK PAIN AND HEADACHE Time Seen by Provider: 03/07/19 20:19 Source of Information: Reports: Patient History Limitations: Reports: No Limitations - History of Present Illness INITIAL COMMENTS - FREE TEXT/NARRATIVE: This is a 29-year-old female. She has a chiropractor that works on her lower back and does a great job of making it feel better but over the last couple of months he is started to work on her neck and her upper back. He has adjusted her neck and upper back 4 times in the last several weeks and she noted the last 2 times when he does it she actually has increasing pain in her upper back along with headaches. She says the last 2 times after he adjusted her she had some tingling in her left upper extremity middle ring and little finger. She is not told him this though she is noted this. Because of the increasing soreness and some swelling back there she says she comes to the ER for evaluation. She denies any numbness or tingling in her upper extremities or pain going down her upper extremities. She does complain of headaches and sharp pain that shoots up into her head from her neck and tightness and tenderness and runs down her back. 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: Reports: Musculoskeletal History: Reports: Back Pain, Chronic Neurological History: Reports: Migraines Endocrine/Metabolic History: Reports: Diabetes, Gestational Other Endocrine/Metabolic History: diet controlled - Infectious Disease History Infectious Disease History: Reports: Chicken Pox - Past Surgical History GI Surgical History: Reports: Appendectomy, Cholecystectomy Female Surgical History: Reports: Section Social & Family History - Family History Family Medical History: Noncontributory - Tobacco Use Smoking Status *Q: Never Smoker Second Hand Smoke Exposure: No - Caffeine Use Caffeine Use: Reports: Energy Drinks, Soda - Recreational Drug Use Recreational Drug Use: No ED ROS GENERAL - Review of Systems Review Of Systems: See Below Constitutional: Denies: Fever, Chills HEENT: Reports: No Symptoms Respiratory: Reports: No Symptoms Cardiovascular: Reports: No Symptoms Endocrine: Reports: No Symptoms GI/Abdominal: Reports: No Symptoms : Reports: No Symptoms Musculoskeletal: Reports: Other (As per history of present illness) Skin: Reports: No Symptoms Neurological: Reports: Other (As per history of present illness) Psychiatric: Reports: No Symptoms Hematologic/Lymphatic: Reports: No Symptoms ED EXAM, UPPER BACK/NECK PAIN - Physical Exam Exam: See Below Exam Limited By: No Limitations General Appearance: Alert, WD/WN, No Apparent Distress Eye Exam: Bilateral Eye: Normal Inspection Ears Exam: Normal External Exam Nose Exam: Normal Inspection Throat/Mouth Exam: Normal Inspection, Normal Lips, Normal Voice, No Airway Compromise Head Exam: Normocephalic, Other (Palpation of the base of the skull where the greater occipital nerve exits and where the paraspinal muscles attach very tender on palpation worsening her headache.) Neck Exam: Other (She has very tender paraspinal muscles of the cervical spine and the upper thoracic area. Midline spine pain is negative on palpation. She seems to have fair range of motion of her cervical spine with rotation but flexion and extension is limited secondary to the soreness in her neck and her upper back.) Back Exam: Other (She has some tenderness and may be some swelling in the C7 C8 T1 and T2 area. She is tender there on palpation. She doesn't really have any symptoms below that area of her thoracic and lumbar spine.) Extremities: Normal Inspection, Normal Range of Motion, Other (She tells me she has no pain and no numbness down her upper extremities, she denies any weakness or strength differential between the 2 upper extremities) Neurologic: first mate II-XII nml As Tested, No Motor/Sensory Deficits, Oriented x 3 Psychiatric: Normal Affect, Normal Mood Skin Exam: Normal Color, Warm/Dry Course - Vital Signs Last Recorded V/S: Last Vital Signs Temp 96.8 F 03/07/19 20:09 Pulse 110 H 03/07/19 20:09 Resp 19 03/07/19 20:09 BP 137/108 H 10/12/19 20:09 Pulse Ox 100 03/07/19 20:09 - Orders/Labs/Meds Orders: Active Orders 24 hr Category Date Time Status Influenza Vaccine Charge [RC] .DISCHARGE Care 03/07/19 20:15 Active Meds: Medications Discontinued Medications Generic Name Dose Route Start Last Admin Trade Name Rosas PRN Reason Stop Dose Admin Influenza Virus Vaccine 60 mcg 03/07/19 20:30 Fluzone Quad [id number] Syringe IM 03/07/19 20:31 .ONCE ONE Departure - Departure Time of Disposition: 20:44 Disposition: Home, Self-Care 01 Condition: Fair Clinical Impression: Thoracic sprain Acute cervical sprain Qualifiers: Encounter type: initial encounter Qualified Code(s): S13.9XXA - Sprain of joints and ligaments of unspecified parts of neck, initial encounter Headache Qualifiers: Headache type: tension-type Headache chronicity pattern: acute headache Intractability: not intractable Qualified Code(s): G44.209 - Tension-type headache, unspecified, not intractable - Discharge Information *PRESCRIPTION DRUG MONITORING PROGRAM REVIEWED*: Not Applicable *COPY OF PRESCRIPTION DRUG MONITORING REPORT IN PATIENT CAM: Not Applicable Prescriptions: Cyclobenzaprine [Flexeril] 10 mg PO TID PRN #15 tab PRN Reason: Spasms Instructions: Cervical Sprain, [id number], Thoracic Strain, [id number] Referrals: Eleanor Sanford NP [Primary Care Provider] - Additional Instructions: Get the muscle relaxer filled tonight, YOUR CANNOT BREAST FEED WHILE TAKING THE MUSCLE RELAXER, you may cut the pill in half if it make you too sleepy and try half a pill first and if half a pill doesn't seem to help then use the full pill for the muscle spasms and tightness, take ibuprofen 600 mg 3-4 times a day with food, consider getting a massage therapist to massage that area, use a heating pad or moist heat on that area to help loosen up the muscles, follow-up with your doctor and make sure she understands that you get tingling in her left upper extremity every time he adjusts your neck and this is not good so he needs to stop adjusting her neck, you might consider an MRI of your neck if your symptoms persist, return to the ER if needed - My Orders Last 24 Hours: My Active Orders 03/07/19 20:15 Influenza Vaccine Charge [RC] .DISCHARGE - Assessment/Plan Last 24 Hours: My Active Orders 03/07/19 20:15 Influenza Vaccine Charge [RC] .DISCHARGE
== END 2019-03-07 20:59 | disposition home or self-care (01) ==
LOC: JD.ED 20:03
DX: S23.3XXA Sprain of ligaments of thoracic spine, initial encounter (principal); S13.9XXA Sprain of joints and ligaments of unspecified parts of neck, initial encounter; G44.209 Tension-type headache, unspecified, not intractable; Z88.8 Allergy status to other drugs, medicaments and biological substances; Z23 Encounter for immunization; X58.XXXA Exposure to other specified factors, initial encounter
CPT/HCPCS: 90686; 99283; 99283-25; G0008

== ENCOUNTER 2019-03-27 12:20 | Emergency (ER) | payer BC ==
[2019-03-27] MEDS ORDERED: Sodium Chloride 0.9% 10 ML Syringe FLUSH PRN (12:51)
[2019-03-27] MEDS ORDERED: Midazolam 1 MG/ML 2 ML SDV IVPUSH ONE (12:51)
[2019-03-27] MEDS ORDERED: fentaNYL 100 MCG/2 ML SDV IVPUSH ONE (12:52)
--- NOTE | 2019-03-27 13:07 | EDM.PDOC ---
ED HPI GENERAL MEDICAL PROBLEM - General Chief Complaint: Lower Extremity Injury/Pain Stated Complaint: RT KNEE INJURY Time Seen by Provider: 03/27/19 12:30 Source of Information: Reports: Patient, RN Notes Reviewed - History of Present Illness INITIAL COMMENTS - FREE TEXT/NARRATIVE: 29 year old female with C/O R knee dislocation. She was kneeling removing groceries from a vehicle and states it "went out" to where she can not extend knee or lower leg. Has quite severe pain, unable to bear weight. Has had this happen "many times before". No other recent injury. 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 Neurological History: Reports: Migraines Psychiatric History: Reports: Anxiety Endocrine/Metabolic History: Reports: Diabetes, Gestational, Obesity/BMI 30+ Other Endocrine/Metabolic History: diet controlled Hematologic History: Reports: None Immunologic History: Reports: None Oncologic (Cancer) History: Reports: None Dermatologic History: Reports: None - Infectious Disease History Infectious Disease History: Reports: Chicken Pox - Past Surgical History Head Surgeries/Procedures: Reports: None GI Surgical History: Reports: Appendectomy, Cholecystectomy Female Surgical History: Reports: Section Social & Family History - Family History Family Medical History: Noncontributory - Tobacco Use Smoking Status *Q: Never Smoker - Caffeine Use Caffeine Use: Reports: Soda - Recreational Drug Use Recreational Drug Use: No Review of Systems - Review of Systems Review Of Systems: See Below Mouth/Throat: Reports: No Symptoms Respiratory: Reports: No Symptoms Cardiovascular: Reports: No Symptoms GI/Abdominal: Reports: No Symptoms Musculoskeletal: Reports: Joint Pain (R knee) Skin: Reports: No Symptoms Neurological: Reports: No Symptoms ED EXAM, GENERAL - Physical Exam Exam: See Below General Appearance: Alert, Mild Distress Eye Exam: Bilateral Eye: PERRL Head: Atraumatic Neck: Supple, Full Range of Motion Respiratory/Chest: No Respiratory Distress, Lungs Clear, Normal Breath Sounds Cardiovascular: Regular Rate, Rhythm Extremities: Limited Range of Motion (R knee is in flexion, does not want to move leg or knee, mild tenderness medially and laterally, no visible deformity, patella is either in or nearly in normal anatomic position) Skin Exam: Warm, Dry, Normal Color Course - Vital Signs Last Recorded V/S: Last Vital Signs Temp 98.4 F 03/27/19 14:50 Pulse 66 03/27/19 14:50 Resp 16 03/27/19 14:50 BP 123/77 03/27/19 14:50 Pulse Ox 98 03/27/19 14:50 - Orders/Labs/Meds Orders: Active Orders 24 hr Category Date Time Status Oxygen Therapy, ED [RC] ASDIRECTED Care 03/27/19 13:34 Active Peripheral IV Care [RC] . DIRECTED Care 03/27/19 12:51 Active Peripheral IV Insertion Adult [OM.PC] Stat Oth 03/27/19 12:50 Ordered Meds: Medications Discontinued Medications Generic Name Dose Route Start Last Admin Trade Name Freq PRN Reason Stop Dose Admin Fentanyl 100 mcg 03/27/19 12:52 03/27/19 13:24 Sublimaze IVPUSH 03/27/19 12:53 100 mcg ONETIME ONE Administration Midazolam HCl 2 mg 03/27/19 12:51 03/27/19 13:26 Versed 1 Mg/Ml IVPUSH 03/27/19 12:52 2 mg ONETIME ONE Administration Sodium Chloride 10 ml 03/27/19 12:51 03/27/19 13:10 Saline Flush FLUSH 10 ml ASDIRECTED PRN Administration Keep Vein Open - Re-Assessments/Exams Free Text/Narrative Re-Assessment/Exam: 03/27/19 14:22 did given IV fentanyl and dilaudid with consideration if ankle may have been partially subluxed. I felt no movement with extension. X rays show no fx. Will treat with amando wrap and crutches. Departure - Departure Time of Disposition: 14:20 Disposition: Home, Self-Care 01 Condition: Fair Clinical Impression: Knee pain, right - Discharge Information Instructions: Knee Pain, Adult Referrals: Eleanor Sanford, CAD ENGINEER [Primary Care Provider] - Forms: ED Department Discharge Additional Instructions: Amando wrap R knee, ice packs and elevation as needed for swelling. Crutches as needed. Advil or ibuprofen 600 mg 3 times daily, tylenol in between doses if needed for extra pain relief. See Dr Nuñez, [facility] in 5 to 10 days, call [phone] for appt. - My Orders Last 24 Hours: My Active Orders 03/27/19 12:50 Peripheral IV Insertion Adult [OM.PC] Stat 03/27/19 12:51 Peripheral IV Care [RC] . DIRECTED 03/27/19 13:34 Oxygen Therapy, ED [RC] ASDIRECTED - Assessment/Plan Last 24 Hours: My Active Orders 03/27/19 12:50 Peripheral IV Insertion Adult [OM.PC] Stat 03/27/19 12:51 Peripheral IV Care [RC] . DIRECTED 03/27/19 13:34 Oxygen Therapy, ED [RC] ASDIRECTED
--- NOTE | 2019-03-27 14:39 | CR ---
Right knee: Four views of the right knee were obtained. Comparison: No previous knee exam. No joint effusion is seen. Medial and lateral joint compartments are maintained in height. No fracture, dislocation or other bony abnormality is seen. Impression: 1. No abnormality is appreciated on right knee exam. Diagnostic code #1
[2019-03-27 15:01] VITALS: BP 123/77; PULSE 66
== END 2019-03-27 14:50 | disposition home or self-care (01) ==
LOC: JD.ED 12:20
DX: M25.561 Pain in right knee (principal); J45.909 Unspecified asthma, uncomplicated; Z88.8 Allergy status to other drugs, medicaments and biological substances; Z79.899 Other long term (current) drug therapy
CPT/HCPCS: 73564; 96374; 96375; 99283; J2250; J3010

== ENCOUNTER 2020-03-10 05:50 | Emergency (ER) | payer BC, MEDICAID ==
[2020-03-10 06:03] VITALS: BP 145/90; PULSE 116
--- NOTE | 2020-03-10 06:15 | EDM.PDOC ---
<Tyshawn Bravo - Last Filed: 03/10/20 08:33> ED HPI GENERAL MEDICAL PROBLEM - General Chief Complaint: Chest Pain Stated Complaint: CHEST PRESSURE ARM PAIN Time Seen by Provider: 03/10/20 06:11 - History of Present Illness INITIAL COMMENTS - FREE TEXT/NARRATIVE: 30-year-old female presents the emergency room with left arm and chest pain. Left arm pain started 2 days ago she has noticed difficulty hanging onto stuff with her left arm but she has pain that shoots from upper left arm into her chest. The chest pain was noticed this morning. The pain comes from her shoulder radiates into her mid chest area. This is aggravated by deep breathing. Patient does not have a history of blood clots she is not on oral contraceptives at this point she does not believe she is . She has had no nausea vomiting or abdominal pain. Chest Pain Score (Numeric/FACES): 4 - Related Data Allergies Allergy/AdvReac Type Severity Reaction Status Date / Time methylprednisolone Allergy Itching Verified 03/27/19 12:31 Home Meds: Home Meds . 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 Neurological History: Reports: Migraines Psychiatric History: Reports: Anxiety Endocrine/Metabolic History: Reports: Diabetes, Gestational, Obesity/BMI 30+ Other Endocrine/Metabolic History: diet controlled Hematologic History: Reports: None Immunologic History: Reports: None Oncologic (Cancer) History: Reports: None Dermatologic History: Reports: None - Infectious Disease History Infectious Disease History: Reports: Chicken Pox - Past Surgical History GI Surgical History: Reports: Appendectomy, Cholecystectomy Female Surgical History: Reports: Section Social & Family History - Family History Family Medical History: Noncontributory - Tobacco Use Tobacco Use Status *Q: Never Tobacco User Second Hand Smoke Exposure: Yes - Caffeine Use Caffeine Use: Reports: Soda - Recreational Drug Use Recreational Drug Use: No ED ROS GENERAL - Review of Systems Review Of Systems: See Below Constitutional: Reports: No Symptoms HEENT: Reports: No Symptoms Respiratory: Reports: Pleuritic Chest Pain. Denies: Shortness of Breath, Cough, Sputum Cardiovascular: Denies: Dyspnea on Exertion, Edema, Palpitations, Syncope Endocrine: Reports: No Symptoms GI/Abdominal: Reports: No Symptoms Musculoskeletal: Reports: No Symptoms Skin: Reports: No Symptoms Neurological: Reports: No Symptoms ED EXAM, GENERAL - Physical Exam Exam: See Below Exam Limited By: No Limitations General Appearance: Alert, No Apparent Distress Head: Atraumatic, Normocephalic Neck: Normal Inspection, Supple, Non-Tender, Full Range of Motion Respiratory/Chest: No Respiratory Distress, Lungs Clear, Normal Breath Sounds Cardiovascular: No Edema, No Murmur, Tachycardia. No: Irregularly Irregular GI/Abdominal: Normal Bowel Sounds, Soft, Non-Tender Back Exam: Normal Inspection. No: CVA Tenderness (L), CVA Tenderness (R) Extremities: Normal Inspection, No Pedal Edema, Other (Emanation of the left upper extremity shows a positive Tinel's sign with paresthesias moving upper arm and a positive Phalen's.) Neurological: Alert, Oriented, Normal Cognition #1 Interpretation EKG Date: 03/10/20 Rhythm: NSR [place]: LAD-Left [place] Deviation P-Wave: Present QRS: Normal Comparison: NA - No Prior EKG EKG Interpretation Comments: Baseline artifact leftward axis borderline EKG. Course - Re-Assessments/Exams Free Text/Narrative Re-Assessment/Exam: 03/10/20 08:28 With the patient's chest pain pleuritic in nature and tachycardia a chest PE study was ordered and is pending at this point I believe the patient also has left-sided carpal tunnel syndrome she is placed in a CTS splint to use mostly at night. Departure - Departure Disposition: Home, Self-Care 01 Clinical Impression: Carpal tunnel syndrome of left wrist, Chest pain, pleuritic - Discharge Information Instructions: Carpal Tunnel Syndrome, [id number], Chest Wall Pain, [id number] Referrals: Eleanor Sanford NP [Primary Care Provider] - Forms: ED Department Discharge Additional Instructions: Return to the emergency room with any questions problems or worsening symptoms. You have been given a splint to wear on your left wrist I would wear this for the next couple of days and then wear it nightly thereafter this should help with shooting pain up your left arm significantly. Follow-up with your regular health Provider the middle of this next week for recheck. Sepsis Event Note (ED) - Evaluation Sepsis Screening Result: No Definite Risk <Salvatore Lew - Last Filed: 03/18/20 07:47> Course - Vital Signs Last Recorded V/S: Last Vital Signs Temp 97.4 F 03/10/20 06:01 Pulse 116 H 03/10/20 06:01 Resp 15 03/10/20 06:01 BP 145/90 H 03/10/20 06:01 Pulse Ox 99 03/10/20 06:01 - Orders/Labs/Meds Labs: Laboratory Tests 03/10/20 03/10/20 03/10/20 Range/Units 06:36 06:36 06:36 WBC 11.05 H (3.98-10.04) K/mm3 RBC 5.00 (3.98-5.22) M/mm3 Hgb 13.9 D (11.2-15.7) gm/dl Hct 43.3 (34.1-44.9) % MCV 86.6 D (79.4-94.8) fl MCH 27.8 (25.6-32.2) pg MCHC 32.1 L (32.2-35.5) g/dl RDW Std Deviation 44.0 (36.4-46.3) fL Plt Count 416 H D (182-369) K/mm3 MPV 9.9 (9.4-12.3) fl Neut % (Auto) 69.2 (34.0-71.1) % Lymph % (Auto) 20.5 (19.3-51.7) % Barton % (Auto) 8.1 (4.7-12.5) % Eos % (Auto) 1.7 (0.7-5.8) Baso % (Auto) 0.4 (0.1-1.2) % Neut # (Auto) 7.65 H (1.56-6.13) K/mm3 Lymph # (Auto) 2.26 (1.18-3.74) K/mm3 Barton # (Auto) 0.90 H (0.24-0.36) K/mm3 Eos # (Auto) 0.19 (0.04-0.36) K/mm3 Baso # (Auto) 0.04 (0.01-0.08) K/mm3 PT 10.4 (9.7-11.7) SECONDS INR 0.97 APTT 29 (22-31) SECONDS Sodium 141 (136-145) mEq/L Potassium 3.7 (3.5-5.1) mEq/L Chloride 104 (98-107) mEq/L Carbon Dioxide 27 (21-32) mEq/L Anion Gap 13.7 (5-15) BUN 14 (7-18) mg/dL Creatinine 0.9 (0.55-1.02) mg/dL Est Cr Clr Drug Dosing 77.49 mL/min Estimated GFR (MDRD) > 60 (>60) mL/min BUN/Creatinine Ratio 15.6 (14-18) Glucose 114 H (74-106) mg/dL Calcium 9.4 (8.5-10.1) mg/dL Total Bilirubin 1.3 H (0.2-1.0) mg/dL AST 16 (15-37) U/L ALT 31 (14-59) U/L Alkaline Phosphatase 113 (46-116) U/L Troponin I < 0.017 (0.00-0.056) ng/mL Total Protein 7.9 (6.4-8.2) g/dl Albumin 3.5 (3.4-5.0) g/dl Globulin 4.4 gm/dL Albumin/Globulin Ratio 0.8 L (1-2) HCG, Qual (NEGATIVE) 03/10/20 Range/Units 06:36 WBC (3.98-10.04) K/mm3 RBC (3.98-5.22) M/mm3 Hgb (11.2-15.7) gm/dl Hct (34.1-44.9) % MCV (79.4-94.8) fl MCH (25.6-32.2) pg MCHC (32.2-35.5) g/dl RDW Std Deviation (36.4-46.3) fL Plt Count (182-369) K/mm3 MPV (9.4-12.3) fl Neut % (Auto) (34.0-71.1) % Lymph % (Auto) (19.3-51.7) % Barton % (Auto) (4.7-12.5) % Eos % (Auto) (0.7-5.8) Baso % (Auto) (0.1-1.2) % Neut # (Auto) (1.56-6.13) K/mm3 Lymph # (Auto) (1.18-3.74) K/mm3 Barton # (Auto) (0.24-0.36) K/mm3 Eos # (Auto) (0.04-0.36) K/mm3 Baso # (Auto) (0.01-0.08) K/mm3 PT (9.7-11.7) SECONDS INR APTT (22-31) SECONDS Sodium (136-145) mEq/L Potassium (3.5-5.1) mEq/L Chloride (98-107) mEq/L Carbon Dioxide (21-32) mEq/L Anion Gap (5-15) BUN (7-18) mg/dL Creatinine (0.55-1.02) mg/dL Est Cr Clr Drug Dosing mL/min Estimated GFR (MDRD) (>60) mL/min BUN/Creatinine Ratio (14-18) Glucose (74-106) mg/dL Calcium (8.5-10.1) mg/dL Total Bilirubin (0.2-1.0) mg/dL AST (15-37) U/L ALT (14-59) U/L Alkaline Phosphatase (46-116) U/L Troponin I (0.00-0.056) ng/mL Total Protein (6.4-8.2) g/dl Albumin (3.4-5.0) g/dl Globulin gm/dL Albumin/Globulin Ratio (1-2) HCG, Qual Negative (NEGATIVE) Meds: Medications Discontinued Medications Generic Name Dose Route Start Last Admin Trade Name Freq PRN Reason Stop Dose Admin Sodium Chloride 100 mls @ 4 mls/sec 03/10/20 06:54 03/10/20 08:10 Normal Saline IV 03/10/20 06:55 4 mls/sec ONETIME ONE Administration Iopamidol 100 ml 03/10/20 06:54 03/10/20 08:10 [id number] (76%) IVPUSH 03/10/20 06:55 100 ml ONETIME ONE Administration Sodium Chloride 10 ml 03/10/20 06:54 03/10/20 08:10 Saline Flush FLUSH 10 ml ONETIME PRN Administration IV Flush Departure - Departure Time of Disposition: 09:03
[2020-03-10] MEDS ORDERED: Sodium Chloride 0.9% 100 ML IV ONE (06:54)
[2020-03-10] MEDS ORDERED: Sodium Chloride 0.9% 10 ML Syringe FLUSH PRN (06:54)
[2020-03-10] MEDS ORDERED: Iopamidol 755 Mg/ML 100 ML Bottle IVPUSH ONE (06:54)
--- NOTE | 2020-03-29 15:32 | CT ---
PROCEDURE INFORMATION: Exam: CT Chest With Contrast Exam date and time: 03/10/2020 7:27 AM Age: 30 years old Clinical indication: Patient HX: Chest pain tachy ? pe TECHNIQUE: Imaging protocol: Computed tomography of the chest with intravenous contrast. Radiation optimization: All CT scans at this facility use at least one of these dose optimization techniques: automated exposure control; mA and/or kV adjustment per patient size (includes targeted exams where dose is matched to clinical indication); or iterative reconstruction. COMPARISON: No relevant prior studies available. FINDINGS: Lungs: Mild dependent atelectasis is present bilaterally. The lungs are otherwise clear. The central airways appear patent. Pleural space: Unremarkable. No pneumothorax. No pleural effusion. Heart: Unremarkable. No cardiomegaly. No pericardial effusion. Pulmonary arteries: No pulmonary embolus is identified. Aorta: The thoracic aorta is nonaneurysmal. Lymph nodes: Unremarkable. No enlarged lymph nodes. Gallbladder and bile ducts: Cholecystectomy clips are present. Bones/joints: Unremarkable. No acute fracture. Soft tissues: Unremarkable. IMPRESSION: No pulmonary embolus or other acute thoracic disease identified. COMMENTS: 1. Note the study was performed on 03/10/2020 7:27 AM and is submitted for final review on 03/29/2020. 2. Findings were relayed at time of preliminary interpretation. Thank you for allowing us to participate in the care of your patient. Dictated and Authenticated by: Jon Cortez MD 03/29/2020 2:44 PM Central Time ([place] & [place]) CAR
== END 2020-03-10 09:05 | disposition home or self-care (01) ==
LOC: JD.ED 05:50
DX: G56.02 Carpal tunnel syndrome, left upper limb (principal); R07.81 Pleurodynia; R00.0 Tachycardia, unspecified; J45.909 Unspecified asthma, uncomplicated; E66.9 Obesity, unspecified; Z88.8 Allergy status to other drugs, medicaments and biological substances; Z68.41 Body mass index [BMI] 40.0-44.9, adult; Z77.22 Contact with and (suspected) exposure to environmental tobacco smoke (acute) (chronic)
CPT/HCPCS: 36415; 71275; 80053; 84484; 84703; 85025; 85610; 85730; 93005; 99285; Q9967; 93010; 99283